=== PATIENT | male | born 1945 | race Caucasian/White ===

== ENCOUNTER 2020-01-09 11:03 | Outpatient (CLI) | payer MEDICARE, SELFPAY ==
--- NOTE | ~2020-01-09 | XR_ITS ---
EXAMINATION: XR chest 2V DATE: 01/09/2020 11:23 INDICATION: Cough and asthma TECHNIQUE: Frontal and lateral views of the chest are obtained COMPARISON: 06/04/2017 FINDINGS: The lungs are free of acute opacities. There is no pleural effusion or pneumothorax. The ca rdiomediastinal silhouette is normal. There is moderate thoracic spondylosis. There are changes of bi lateral total shoulder arthroplasty. IMPRESSION: 1. No acute cardiopulmonary abnormality. Reviewed, dictated and finalized at location A.
== END 2020-01-09 11:04 | disposition home or self-care (01) ==
LOC: ANHIMG 11:09
PROVIDERS: PCP Internal Medicine; Visit Provider Internal Medicine
DX: R05 Cough (principal)
CPT/HCPCS: 71046

== ENCOUNTER → 2020-10-03 09:05 | Outpatient (CLI) | payer MEDICARE, SELFPAY ==
[2020-10-03 21:06] LABS: SARS-CoV-2 RNA PCR Negative
== END ==
PROVIDERS: PCP Physician Assistant; Visit Provider Physician Assistant
DX: R68.89 Other general symptoms and signs (principal); Z20.822 Contact with and (suspected) exposure to COVID-19
CPT/HCPCS: C9803; U0003; U0005

== ENCOUNTER 2020-10-27 21:13 | Emergency (ER) | payer MEDICARE, SELFPAY ==
--- NOTE | ~2020-10-27 | XR_ITS ---
EXAMINATION: XR chest 1V DATE: 10/27/2020 21:56 INDICATION: Dizziness. Nausea and vomiting. TECHNIQUE: A single frontal view of the chest was obtained. COMPARISON: Chest 2 views 01/09/2020 FINDINGS: There is mild atelectasis at left lung base. No pleural effusion or pneumothorax. The heart size is normal. There are bilateral shoulder arthroplasties. IMPRESSION: 1. Mild atelectasis at left lung base. Reviewed, dictated and finalized at location A. BILITATION PHYSICIAN
--- NOTE | ~2020-10-27 | CT_ITS ---
EXAMINATION: CT brain wo con DATE: 10/27/2020 21:53 INDICATION: Dizziness. TECHNIQUE: Computed tomography (CT) of the head was performed without intravenous contrast. The mA wa s adjusted according to patient size. Iterative reconstruction technique was employed. The dose-lengt h product was 605.33 mGy-cm. COMPARISON: None FINDINGS: There are scattered areas of low attenuation in the cerebral white matter. There is chronic encephalomalacia in anterior left temporal lobe. There is no intracranial hemorrhage, acute infarcti on, or abnormal intracranial mass lesion. The ventricles are normal in size. There are likely changes of ocular lens replacement surgeries. There is near complete opacification of the paranasal sinuses with sclerosis is and thickening of the sinus harman and erosions of septa, consistent with chronic si nusitis. The mastoid air cells are normal. IMPRESSION: 1. 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 2. Moderate nonspecific cerebral white matter disease, which likely represents chronic small vessel i schemic disease. 3. Chronic sinusitis. Reviewed, dictated and finalized at location A. OFFICER IMPRESSION: 1. 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 2. Moderate nonspecific cerebral white matter disease, which likely represents chronic small vessel ischemic disease. 3. Chronic sinusitis.
[2020-10-27 21:16] VITALS: BP 148/87; PULSE 61; RESP 18; TEMP 36.1; O2SAT 95
--- NOTE | 2020-10-27 21:35 | ECG_ITS ---
Measurements Intervals [place] Rate: 59 P: 26 MI: 177 QRS: -30 QRSD: 134 T: 3 QT: 437 QTc: 435 Interpretive Statements SINUS BRADYCARDIA INCOMPLETE RIGHT BUNDLE BRANCH BLOCK BORDERLINE ECG Electronically Signed On 10-28-2020 7:09:13 [employer] by Reyes Beard D.O.
[2020-10-27 21:39] VITALS: BP 130/79; PULSE 55
--- NOTE | 2020-10-27 21:39 | ED.DIZZY ---
HPI - Dizziness General Chief Complaint: Dizziness Stated Complaint: N/V, not feeling well. Time Seen by Provider: 10/27/20 21:21 Source: RN notes reviewed History of Present Illness HPI Narrative: Patient presents emergency department from home for dizziness. Patient states that he began to notice dizziness with a feeling of the room spinning earlier today is worse when he lays down flat states it was associated with nausea and vomiting when he became dizzy states dizziness is better lysing upright in bed he denies any fevers or chills vision changes numbness or tingling in extremities chest pain, shortness of breath or any other symptoms. Patient denies any unilateral numbness or tingling of the extremities or trouble speaking Related Data Home Medications Medication Instructions Recorded Confirmed atorvastatin 10 mg tablet 10 mg PO DAILY 09/12/19 10/04/20 fluticasone propionate 50 2 spray NASAL DAILY 09/12/19 10/04/20 mcg/actuation nasal spray,suspension montelukast 10 mg tablet 10 mg PO DAILY 09/12/19 10/04/20 Allergies Allergy/AdvReac Type Severity Reaction Status Date / Time No Known Allergies Allergy Verified 10/04/20 11:13 Review of Systems Review of Systems: Narrative: Gen.: Denies fevers or chills Eyes: Denies eye pain or visual change ENT: Denies congestion Respiratory: Denies shortness of breath or cough CV: Denies chest pain or palpitations GI: Denies abdominal pain reports nausea vomiting Musculoskeletal: Denies back pain or muscle pain Neuro: Reports dizziness Skin: Denies rash Except as documented, all other systems reviewed and negative [facility] Past Medical History Medical History (Updated 10/28/20 @ 01:55 by Celio Duvall DO) Hyperglycemia Family History Family History Mother Patient's mother is in good health Sibling Cerebrovascular accident, Onset Age: 71 Patient's brother is , Onset Age: 71 Father Patient's father is , Onset Age: 51 Social History Social History Smoking status: Never smoker Second hand tobacco smoke exposure: No Alcohol intake: current Substance use: never Exam Narrative: Exam Narrative: APPEARANCE: No acute distress, nontoxic, resting in bed HEENT: Normocephalic, atraumatic, OMM, TMs clear bilaterally EYES: PERRL, EOMI NECK: Supple, nontender, full range of motion without pain, no meningismus RESPIRATORY: No respiratory distress, clear to auscultation bilaterally with no rhonchi wheezing or rales CARDIOVASCULAR: RRR s murmur ABDOMINAL: Soft, nontender, nondistended MUSCULOSKELETAL: Moves all extremities. No clubbing, cyanosis or edema. NEURO: A and O ?3, following commands, speech normal, cranial nerves II through XII grossly intact,muscle strength 5 out of 5 bilateral upper and lower extremities SKIN:: Warm, dry. Normal Color PSYCHIATRIC: Normal affect/mood Course Course Emergency Course: Patient states dizziness is resolved following Antivert able to get up and ambulate in ED with no difficulty Discussed with patient results of workup and diagnosis. Discussed need for follow-up with primary care, proper use of medication, and reasons to return to the emergency department. Patient understands and agrees to current treatment plan Vital Signs Vital signs: Vital Signs Temperature 96.9 F L 10/27/20 21:16 Pulse Rate 61 10/27/20 21:16 Respiratory Rate 18 10/27/20 21:16 Blood Pressure 148/87 H 10/27/20 21:16 Pulse Oximetry 95 10/27/20 21:16 Temperature 96.9 F L 10/27/20 21:16 Pulse Rate 53 L 10/27/20 21:59 Respiratory Rate 18 10/27/20 21:16 Blood Pressure 146/78 H 10/27/20 21:59 Pulse Oximetry 95 10/27/20 21:16 MDM - Dizziness MDM Narrative Medical decision making narrative: Patient's vertigo is felt to be likely peripheral in origin. There is no diplopia,
[2020-10-27] MEDS: MECLIZINE HCL 25 MG TABLET PO (21:55)
[2020-10-27] MEDS: SODIUM CHLORIDE 0.9% IV 1,000 ML 999 ML IV CONT (21:56)
[2020-10-27 21:59] VITALS: BP 146/78; PULSE 53
[2020-10-27 22:09] LABS: Basophils Absolute Auto 0.1 K/mm3 (0.0-0.1); Basophils Percent Auto 0.5 % (0.2-1.2); Eosinophils Absolute Auto 0.8 K/mm3 (0-0.3); Eosinophils Percent Auto 8.2 % (0-4.4); Hematocrit 44.8 % (42.0-52.0); Hemoglobin 14.9 g/dL (14.0-18.0); Immature Granulocyte Absolute 0.03 K/mm3 (0.00-0.031); Immature Granulocyte Percent A 0.3 % (0-0.5); Immature Platelet Fraction Pct 7.5 % (0.9-11.2); Lymphocytes Absolute Auto 2.14 K/mm3 (0.9-3.2); Lymphocytes Percent Auto 21.6 % (18.3-44.2); Mean Corpuscular HGB Conc 33.3 g/dl (32-36); Mean Corpuscular Hemoglobin 30.7 pg (26-34); Mean Corpuscular Volume 92.4 fl (80-100); Mean Platelet Volume 11.3 fl (7.4-10.4); Monocytes Absolute Auto 0.6 K/mm3 (0.1-0.6); Monocytes Percent Auto 6.3 % (2.6-8.5); Neutrophils Absolute Auto 6.3 K/mm3 (1.3-6.7); Neutrophils Percent Auto 63.1 % (45.5-73.1); Platelet Count Result 121 k/mm3 (150-375); Red Blood Count 4.85 M/mm3 (4.6-6.20); Red Cell Distribution Width 13.5 % (11.5-14.5); White Blood Count 9.9 K/mm3 (4.5-10.0)
[2020-10-27 22:17] LABS: Alanine Aminotransferase 19 U/L (4-50); Albumin Level 4.3 g/dL (3.5-5.1); Alkaline Phosphatase 96 U/L (38-126); Anion Gap 7 mmol/L (8-16); Aspartate Amino Transferase 28 U/L (17-59); Bilirubin,Total 0.6 mg/dL (0.2-1.3); Blood Urea Nitrogen 18 mg/dL (9-20); Calcium 9.4 mg/dL (8.4-10.2); Carbon Dioxide 26 mmol/L (22-30); Chloride 106 mmol/L (98-107); Estimated CRCL calculation 82 ml/min; Estimated Glomerular Filt Rate > 60; Glucose 124 mg/dL (75-110); Potassium 3.9 mmol/L (3.4-5.0); Sodium 139 mmol/L (137-145)
[2020-10-27 22:22] LABS: Prothrombin Time 13.3 Seconds (11.1-14.7)
[2020-10-27 22:23] LABS: Partial Thromboplastin Time 31.6 SECONDS (22.3-36.8)
[2020-10-27 22:28] LABS: Troponin I < 0.012 ng/mL (0.000-0.034)
--- NOTE | 2020-10-27 23:37 | PC.NURSE ---
pt able to ambulate in short with no difficulty. pt has uneven gait that pt reports as normal for him.
[2020-10-28 01:44] LABS: Add Urine Microscopic? YES; Appearance Urine Clear (Clear); Bilirubin Urine Negative (Negative); Blood Urine Negative (Negative); Color Urine Yellow (Yellow); Glucose Urine UA Negative (Negative); Ketones Urine Trace mg/dL (Negative); Leukocyte Esterase Ur Negative LEU/UL (Negative); Mucus Urine Heavy /lpf; Nitrate Urine Negative (Negative); Protein Urine Negative (Negative); RBC Urine 0-2 /hpf (0-2); Specific Grav Ur 1.021 (1.001-1.035); Squamous Epithelial Cell Urine Rare /hpf (Few); Urobilinogen Urine Negative mg/dL (<2.0); WBC Urine 0-3 /hpf
[2020-10-28 02:35] VITALS: BP 125/91; PULSE 63; RESP 16; O2SAT 99
== END 2020-10-28 02:36 | disposition home or self-care (01) ==
PROVIDERS: Emergency Provider Emergency Medicine; PCP Internal Medicine
DX: R42 Dizziness and giddiness (principal); R11.2 Nausea with vomiting, unspecified; I45.10 Unspecified right bundle-branch block; R00.1 Bradycardia, unspecified; J32.9 Chronic sinusitis, unspecified; R90.82 White matter disease, unspecified; G93.89 Other specified disorders of brain
CPT/HCPCS: 36415; 70450; 71045; 80053; 81001; 84484; 85025; 85055; 85610; 85730; 93005; 96360; 99284; A9270; J7030

== ENCOUNTER 2020-10-29 16:33 | Outpatient (CLI) | payer MEDICARE, SELFPAY | END 2020-10-29 16:34 | disposition home or self-care (01) | LOC: ANHCOVIDVC 16:33 | PROVIDERS: PCP Internal Medicine | DX: Z23 Encounter for immunization (principal) | CPT/HCPCS: 0001A; 91300 ==

== ENCOUNTER 2020-11-19 16:27 | Outpatient (CLI) | payer MEDICARE, SELFPAY | END 2020-11-19 16:28 | disposition home or self-care (01) | LOC: ANHCOVIDVC 16:27 | PROVIDERS: PCP Internal Medicine | DX: Z23 Encounter for immunization (principal) | CPT/HCPCS: 0002A; 91300 ==

== ENCOUNTER 2020-12-11 11:57 | Outpatient (CLI) | payer MEDICARE, SELFPAY ==
--- NOTE | 2020-12-11 12:33 | ECG_ITS ---
Measurements Intervals [place] Rate: 67 P: 27 MD: 184 QRS: -44 QRSD: 137 T: 1 QT: 402 QTc: 425 Interpretive Statements SINUS RHYTHM LEFT AXIS DEVIATION RIGHT BUNDLE BRANCH BLOCK BASELINE ARTIFACT- II, III, AVF ABNORMAL ECG Electronically Signed On 12-11-2020 12:46:59 CDT by Reyes Beard D.O.
== END 2020-12-11 11:58 | disposition home or self-care (01) ==
PROVIDERS: PCP Internal Medicine; Visit Provider Physician Assistant
DX: I45.10 Unspecified right bundle-branch block (principal); I49.9 Cardiac arrhythmia, unspecified
CPT/HCPCS: 93005

== ENCOUNTER 2021-04-20 13:46 | Emergency (ER) | payer MEDICARE, SELFPAY ==
--- NOTE | ~2021-04-20 | XR_ITS ---
EXAMINATION: XR chest 2V DATE: 04/20/2021 14:27 INDICATION: Shortness of breath. TECHNIQUE: Frontal and lateral views of the chest were obtained. COMPARISON: Chest single view 10/27/2020, chest 2 views 01/09/2020 FINDINGS: A calcified left lung nodule is consistent with old granulomatous disease. There is mild at electasis in left lower lung zone. No pleural effusion or pneumothorax. The heart size is normal. The re is a moderate-sized hiatal hernia. There are bilateral shoulder arthroplasties. There is a mild ch ronic compression fracture in midthoracic spine. IMPRESSION: 1. Mild atelectasis in left lower lung zone. 2. Moderate-sized hiatal hernia. Reviewed, dictated and finalized at location A.
--- NOTE | 2021-04-20 13:51 | ED.SKABFB ---
HPI - Skin/Abscess/Foreign Bdy General Chief complaint: Skin/Abscess/Foreign Body Stated complaint: bites Time Seen by Provider: 04/20/21 13:51 Source: patient and RN notes reviewed History of Present Illness HPI narrative: Patient is a 75-year-old male who presents the urgent care with complaints of possible bug bites to the left wrist. Patient appeared very confused upon arrival. States that he was bit by something doing yard work the last couple days. Patient was oriented to person and knew that he was being seen at the urgent care however, he was on certain of location. Patient states he has not done anything for the bites on the wrist. States that he noticed them a couple weeks ago. Patient is obviously confused on timeline. Denies of any recent shortness of breath however appears short of breath. No other acute complaints. Patient appears very fatigued. Patient verbalizes his understanding of the plan of care however concepts do not appear to be understood. Some parts of this dictation were generated by voice recognition software and may contain typographical and/or grammatical inaccuracies. Related Data Home Medications Medication Instructions Recorded Confirmed atorvastatin 10 mg tablet 10 mg PO DAILY 09/12/19 12/13/20 fluticasone propionate 50 2 spray NASAL DAILY 09/12/19 12/13/20 mcg/actuation nasal spray,suspension montelukast 10 mg tablet 10 mg PO DAILY 09/12/19 12/13/20 Allergies Allergy/AdvReac Type Severity Reaction Status Date / Time No Known Allergies Allergy Verified 12/11/20 11:12 Review of Systems Review of Systems: CONSTITUTIONAL: Denies fever, chills, or sweats. EYES: Denies visual changes, redness, or discharge. ENT: Denies rhinorrhea, congestion, sore throat, or otalgia. CARDIOVASCULAR: Denies chest pain, palpitations, or edema. RESPIRATORY: Denies cough or dyspnea. GASTROINTESTINAL: Denies abdominal pain, nausea, vomiting, or diarrhea. GENITOURINARY: Denies dysuria or hematuria. SKIN: Reports of 2 bug bites to the left wrist MUSCULOSKELETAL: Denies back pain, joint pain, or myalgia. NEUROLOGIC: Denies headache, numbness, or weakness. Denies increased confusion but states multiple times that he is very fatigued All other systems reviewed are negative, except as documented in HPI. [facility] Past Medical History Medical History Hyperglycemia Family History Family History Mother Patient's mother is in good health Sibling Cerebrovascular accident, Onset Age: 71 Patient's brother is , Onset Age: 71 Father Patient's father is , Onset Age: 51 Social History Social History Smoking status: Never smoker Second hand tobacco smoke exposure: No Alcohol intake: current Substance use: never Comments At the time of my signature, I reviewed and agree with the nursing past medical, surgical, social, and family history. There is no relevant family history pertinent to the patient complaint. Exam Narrative: GENERAL: This is a well-nourished, well-developed patient, appears very fatigued HEAD: normocephalic, atraumatic. EYES: PERRL. Sclera clear/white. Vision is grossly intact. EARS: External ears normal NOSE: External nose normal with no obvious nasal discharge, nares without redness, no rhinorrhea. THROAT: Mucous membranes moist NECK: Neck supple CARDIOVASCULAR: Regular rate and rhythm without murmurs, gallops, or rubs. RESPIRATORY: Diminished throughout with inspiratory and expiratory wheezes to the left upper SKIN: warm, intact with no suspicious lesions or rash, good texture and turgor. NEURO: awake, alert, and oriented to person. Increased confusion according to spouse. Bouts of slurred speech EXTREMITIES: No clubbing, cyanosis, or edema. Course Vital Signs Vital s
--- NOTE | 2021-04-20 14:10 | PC.NURSE ---
Patient is very confused. Attempting to reach family to find out patients baseline condition. Contacted and she will be up to get patient. spoke with provider.
--- NOTE | 2021-04-20 14:13 | PC.NURSE ---
Contacted at [phone]
[2021-04-20 14:15] VITALS: BP 130/72; PULSE 91; RESP 16; TEMP 36.9; O2SAT 93
== END 2021-04-20 14:49 | disposition home or self-care (01) ==
PROVIDERS: Emergency Provider Nurse Practitioner Family; PCP Internal Medicine
DX: L57.0 Actinic keratosis (principal); R53.83 Other fatigue; G30.9 Alzheimer's disease, unspecified; F02.80 Dementia in other diseases classified elsewhere, unspecified severity, without behavioral disturbance, psychotic disturbance, mood disturbance, and anxiety
CPT/HCPCS: 71046; 81003; 99213; G0463

== ENCOUNTER → 2021-04-24 02:59 | Outpatient (CLI) | payer MEDICARE, SELFPAY ==
[2021-04-24 20:00] LABS: SARS-CoV-2 RNA PCR Negative
== END ==
PROVIDERS: PCP Internal Medicine; Visit Provider Internal Medicine
DX: R09.89 Other specified symptoms and signs involving the circulatory and respiratory systems (principal); Z20.822 Contact with and (suspected) exposure to COVID-19
CPT/HCPCS: C9803; U0003; U0005

== ENCOUNTER 2021-10-06 11:07 | Emergency (ER) | payer MEDICARE, SELFPAY ==
[2021-10-06 11:12] VITALS: BP 128/76; PULSE 73; RESP 20; TEMP 36.7; O2SAT 100
--- NOTE | 2021-10-06 11:13 | ED.URI ---
HPI - URI/Sore Throat General Stated Complaint: Sore throat Time Seen by Provider: 10/06/21 11:13 Source: patient and RN notes reviewed History of Present Illness HPI Narrative: Patient is 76-year-old male who presents the urgent care with complaints of sore throat. Spouse answers most questions due to history of dementia. states that he has been complaining for the last 2 days more so after he shoveled snow. Denies of any recent fevers, nausea or vomiting. States that he has had a slight cough and has had increase of mucus production. Patient has been COVID vaccinated and denies of any recent exposures. Spouse states that no one else in the home has been ill. Patient has taken aspirin for his sore throat. No other acute complaints. No acute distress noted. Patient spouse aware of the plan of care. Some parts of this dictation were generated by voice recognition software and may contain typographical and/or grammatical inaccuracies. Related Data Home Medications Medication Instructions Recorded Confirmed atorvastatin 10 mg tablet 10 mg PO DAILY 09/12/19 06/09/21 montelukast 10 mg tablet 10 mg PO DAILY 09/12/19 06/09/21 Allergies Allergy/AdvReac Type Severity Reaction Status Date / Time No Known Allergies Allergy Verified 10/06/21 11:19 Review of Systems Review of Systems: CONSTITUTIONAL: Denies fever, chills, or sweats. EYES: Denies visual changes, redness, or discharge. ENT: Reports rhinorrhea, postnasal drainage and sore throat CARDIOVASCULAR: Denies chest pain, palpitations, or edema. RESPIRATORY: Reports a mild cough without dyspnea GASTROINTESTINAL: Denies abdominal pain, nausea, vomiting, or diarrhea. GENITOURINARY: Denies dysuria or hematuria. SKIN: Denies rash or itching. MUSCULOSKELETAL: Denies back pain, joint pain, or myalgia. NEUROLOGIC: Denies headache, numbness, or weakness. All other systems reviewed are negative, except as documented in HPI. [facility] Past Medical History Medical History Hyperglycemia Family History Family History Mother Patient's mother is in good health Sibling Cerebrovascular accident, Onset Age: 71 Patient's brother is , Onset Age: 71 Father Patient's father is , Onset Age: 51 Social History Social History Smoking status: Never smoker Second hand tobacco smoke exposure: No Alcohol intake: current Substance use: never Comments At the time of my signature, I reviewed and agree with the nursing past medical, surgical, social, and family history. There is no relevant family history pertinent to the patient complaint. Exam Narrative: GENERAL: This is a well-nourished, well-developed patient, in no apparent distress. HEAD: normocephalic, atraumatic. EYES: PERRL. Sclera clear/white. Vision is grossly intact. EARS: External ears normal, auditory canals clear and without drainage, TMs normal without perforation. Hearing grossly intact. NOSE: External nose normal with no obvious nasal discharge, nares without redness, clear rhinorrhea. THROAT: Mucous membranes moist. Mild erythema noted posterior pharynx with moderate postnasal drainage NECK: Neck supple CARDIOVASCULAR: Regular rate and rhythm without murmurs, gallops, or rubs. RESPIRATORY: Slight expiratory wheezes to bilateral upper lobes. SKIN: warm, intact with no suspicious lesions or rash, good texture and turgor. NEURO: awake, alert, and oriented to person, place and time. There were no obvious focal neurologic abnormalities. EXTREMITIES: No clubbing, cyanosis, or edema. Course Course Level of Care: Express Care Visit Vital Signs Vital signs: Vital Signs Temperature 98.0 F 10/06/21 11:12 Pulse Rate 73 10/06/21 11:12 Respiratory Rate 20 10/06/21 11:12 Blood Pressure 128/76
== END 2021-10-06 11:43 | disposition home or self-care (01) ==
PROVIDERS: Emergency Provider Nurse Practitioner Family; PCP Internal Medicine
DX: J40 Bronchitis, not specified as acute or chronic (principal); J02.9 Acute pharyngitis, unspecified; F03.90 Unspecified dementia, unspecified severity, without behavioral disturbance, psychotic disturbance, mood disturbance, and anxiety
CPT/HCPCS: 87081; 87880; 99213; G0463

== ENCOUNTER 2021-12-23 13:28 | Emergency (ER) | payer MEDICARE, SELFPAY ==
--- NOTE | ~2021-12-23 | CT_ITS ---
EXAMINATION: CT abdomen pelvis w con INDICATION: Abdominal pain TECHNIQUE: Computed tomographic images of the abdomen and pelvis were obtained after the administrati on of 100 cc of Omnipaque 350 intravenous contrast. The dose-length product (DLP) was 491.65 mGy-cm. Automated exposure control and iterative reconstruction technique were employed. COMPARISON: None available FINDINGS: Minimal dependent atelectasis is present in the lung bases. The heart size is normal. There is a moderate-sized sliding hiatal hernia. There is possible circumferential wall thickening of the gastric antrum. There is a 3 mm cyst in the left hepatic lobe. The spleen, pancreas, gallbladder, and adrenal glands are normal. The right kidney is unremarkable. There is a 9 mm cyst of the left kidney . There is calcified atherosclerosis of the aorta and many of the other arteries. No pathologically e nlarged abdominal or pelvic lymph nodes are identified. There is no free intraperitoneal gas or evide nce of bowel obstruction. The appendix is normal. There is severe lumbar spondylosis. IMPRESSION: 1. Questionable wall thickening of the gastric antrum which could reflect gastritis. 2. Moderate-sized sliding hiatal hernia. Reviewed, dictated and finalized at location F. IMPRESSION: 1. Questionable wall thickening of the gastric antrum which could reflect gastr itis. 2. Moderate-sized sliding hiatal hernia.
[2021-12-23 13:46] VITALS: BP 139/83; PULSE 69; RESP 18; TEMP 35.9; O2SAT 94
[2021-12-23 14:05] LABS: Basophils Absolute Auto 0.1 K/mm3 (0.0-0.1); Basophils Percent Auto 0.8 % (0.2-1.2); Eosinophils Absolute Auto 0.7 K/mm3 (0-0.3); Hematocrit 48.6 % (42.0-52.0); Hemoglobin 15.9 g/dL (14.0-18.0); Immature Granulocyte Absolute 0.03 K/mm3 (0.00-0.031); Immature Granulocyte Percent A 0.4 % (0-0.5); Immature Platelet Fraction Pct 6.8 % (0.9-11.2); Lymphocytes Absolute Auto 1.39 K/mm3 (0.9-3.2); Lymphocytes Percent Auto 18.8 % (18.3-44.2); Mean Corpuscular HGB Conc 32.7 g/dl (32-36); Mean Corpuscular Hemoglobin 31.1 pg (26-34); Mean Corpuscular Volume 94.9 fl (80-100); Monocytes Absolute Auto 0.5 K/mm3 (0.1-0.6); Monocytes Percent Auto 6.1 % (2.6-8.5); Neutrophils Absolute Auto 4.7 K/mm3 (1.3-6.7); Neutrophils Percent Auto 63.9 % (45.5-73.1); Platelet Count Result 122 k/mm3 (150-375); Red Blood Count 5.12 M/mm3 (4.6-6.20); Red Cell Distribution Width 13.3 % (11.5-14.5); White Blood Count 7.4 K/mm3 (4.5-10.0)
[2021-12-23 14:12] LABS: Alanine Aminotransferase 19 U/L (4-50); Albumin Level 4.5 g/dL (3.5-5.1); Alkaline Phosphatase 95 U/L (38-126); Anion Gap 7 mmol/L (8-16); Aspartate Amino Transferase 27 U/L (17-59); Bilirubin,Total 0.8 mg/dL (0.2-1.3); Blood Urea Nitrogen 16 mg/dL (9-20); Calcium 9.2 mg/dL (8.4-10.2); Carbon Dioxide 25 mmol/L (22-30); Chloride 106 mmol/L (98-107); Estimated CRCL calculation 78 ml/min; Estimated Glomerular Filt Rate > 60; Glucose 117 mg/dL (65-110); Lipase 55 U/L (23-300); Potassium 4.5 mmol/L (3.4-5.0); Sodium 138 mmol/L (137-145)
[2021-12-23 17:09] LABS: Add Urine Microscopic? YES; Appearance Urine Clear (Clear); Bilirubin Urine Negative (Negative); Blood Urine Negative (Negative); Color Urine Yellow (Yellow); Glucose Urine UA Negative (Negative); Ketones Urine 1+ mg/dL (Negative); Leukocyte Esterase Ur Negative LEU/UL (Negative); Mucus Urine Heavy /lpf; Nitrate Urine Negative (Negative); Protein Urine Negative (Negative); RBC Urine 0-2 /hpf (0-2); Specific Grav Ur 1.026 (1.001-1.035); Squamous Epithelial Cell Urine Rare /hpf (Few); WBC Urine 0-3 /hpf
--- NOTE | 2021-12-23 17:31 | ED.NAVMDI ---
HPI - Nausea/Vomiting/Diarrhea General Chief complaint: Nausea/Vomiting/Diarrhea Stated complaint: stomach pain, vomiting Time Seen by Provider: 12/23/21 17:00 Source: patient and family Mode of arrival: ambulatory Limitations: dementia History of Present Illness HPI Narrative: This is a 76-year-old male that presents to the emergency department for nausea and vomiting. Associated with mid abdominal discomfort. Ongoing since early this morning. Denies fever, diarrhea, hematochezia, or dysuria. Related Data Home Medications Medication Instructions Recorded Confirmed rivastigmine 4.6 mg TRANSDERMAL DAILY 12/12/21 12/12/21 sertraline 25 mg tablet 25 mg PO DAILY 12/12/21 12/12/21 donepezil 10 mg DAILY 12/23/21 fluticasone propion-salmeterol INHALATION 12/23/21 [Wixela Arturo] Allergies Allergy/AdvReac Type Severity Reaction Status Date / Time No Known Allergies Allergy Verified 12/23/21 16:47 Review of Systems Review of Systems: CONSTITUTIONAL: Denies fever GASTROINTESTINAL: Reports abdominal pain, nausea, vomiting. Denies diarrhea. GENITOURINARY: Denies dysuria All systems reviewed & are unremarkable except as noted in HPI and below PMFSH Past Medical History Medical History (Updated 12/23/21 @ 19:24 by Nereyda Rosa PA-C) Dementia Hyperglycemia Unspecified asthma, uncomplicated Family History Family History Mother Patient's mother is in good health Sibling Cerebrovascular accident, Onset Age: 71 Patient's brother is , Onset Age: 71 Father Patient's father is , Onset Age: 51 Social History Social History Second hand tobacco smoke exposure: No Alcohol intake: current Substance use: never Exam Narrative: GENERAL: Well-appearing, well-nourished, and in no acute distress. HEAD: Normocephalic, atraumatic. EYES: EOMI. CHEST: Clear to auscultation. No respiratory distress. No wheezes rales or rhonchi HEART: Regular rate and rhythm. No murmur heard. Normal peripheral pulses. ABDOMEN: Soft, nontender, nondistended, normal active bowel sounds. No CVA tenderness EXTREMITIES: Normal range of motion. No edema. SKIN: Warm, dry, no rash. NEURO: No focal deficits. Alert and oriented x3. PSYCH: Normal mood and affect Course Vital Signs Vital signs: Vital Signs Temperature 96.7 F L 12/23/21 13:46 Pulse Rate 69 12/23/21 13:46 Respiratory Rate 18 12/23/21 13:46 Blood Pressure 139/83 12/23/21 13:46 Pulse Oximetry 94 12/23/21 13:46 Temperature 96.7 F L 12/23/21 13:46 Pulse Rate 85 12/23/21 19:01 Respiratory Rate 16 12/23/21 19:01 Blood Pressure 125/77 12/23/21 19:01 Pulse Oximetry 96 12/23/21 19:01 MDM - Nausea/Vomiting/Diarrhea MDM Narrative Medical decision making narrative: Patient presents to the emergency department for abdominal pain, nausea and vomiting. Ongoing since this morning. Patient is afebrile and nontoxic-appearing. His vitals are stable. CBC and metabolic panel without concerning findings. Lipase is normal. UA without evidence of infection. CT scan of the abdomen and pelvis shows gastritis and a moderate size sliding hiatal hernia. Patient and family updated on case findings. Given dose of Protonix, Zofran and hydrated with relief. Able to tolerate p.o. challenge. Will be started on PPI and instructed to follow-up with gastroenterology. He was given warnings to return to the ER Lab Data Attestation: I reviewed the patient's lab results. Result diagrams: 12/23/21 13:57 12/23/21 13:57 Labs: Lab Results 12/23/21 12/23/21 12/23/21 Range/Units 13:57 13:57 16:57 WBC 7.4 (4.5-10.0) K/mm3 RBC 5.12 (4.6-6.20) M/mm3 Hgb 15.9 (14.0-18.0) g/dL Hct 48.6 (42.0-52.0) % MCV 94.9 (80-100) fl MCH 31.1 (26-34) pg MCHC 32.7 (32-36) g/d
[2021-12-23] MEDS: PANTOPRAZOLE SODIUM IV 40 MG VIAL IV PUSH (18:39)
[2021-12-23] MEDS: ONDANSETRON INJ 4 MG/2 ML VIAL IV PUSH (18:39)
[2021-12-23] MEDS: SODIUM CHLORIDE 0.9% IV 500 ML 999 ML IV CONT (18:39)
--- NOTE | 2021-12-23 19:00 | PC.NURSE ---
Assumed care of pt. at this time. Report from SHARI Mendoza
[2021-12-23 19:01] VITALS: BP 125/77; PULSE 85; RESP 16; O2SAT 96
[2021-12-23 19:10] VITALS: BP 139/74; PULSE 61; RESP 12; O2SAT 98
[2021-12-23 19:40] VITALS: BP 126/79; PULSE 61; RESP 14; O2SAT 100
== END 2021-12-23 19:40 | disposition home or self-care (01) ==
PROVIDERS: Emergency Provider Emergency Medicine; PCP Internal Medicine
DX: K29.70 Gastritis, unspecified, without bleeding (principal); F03.90 Unspecified dementia, unspecified severity, without behavioral disturbance, psychotic disturbance, mood disturbance, and anxiety; Z79.899 Other long term (current) drug therapy
CPT/HCPCS: 36415; 74177; 80053; 81001; 83690; 85025; 85055; 96365; 96375; 99284; C9113; J0131; J2405; J7040; Q9967

== ENCOUNTER 2022-04-08 15:03 | Emergency (ER) | payer MEDICARE, SELFPAY ==
--- NOTE | ~2022-04-08 | CT_ITS ---
EXAMINATION: CT brain wo con DATE: 04/08/2022 16:07 INDICATION: Increased confusion. History of dementia. TECHNIQUE: Computed tomography (CT) of the head was performed without intravenous contrast. The mA wa s adjusted according to patient size. Iterative reconstruction technique was employed. Exam dose: 68 1.00 mGy-cm total exam DLP. COMPARISON: 10/27/2020 CT brain FINDINGS: There is mild central and cortical cerebral moderately prominent cerebellar atrophy. No intracranial mass lesion or hemorrhage or recent cerebrovascular accident is detected. Chronic ant erior inferior left temporal encephalomalacia. Minimal left basal ganglia calcification. No midline shift or mass effect. Bilateral carotid siphon internal carotid artery calcifications. Nonspecific diminished attenuation c erebral white matter, likely due to chronic small vessel ischemic changes. No subdural or epidural hematoma. No fracture or bone destruction of the cranial vault. Complete opacification of the right frontal, right ethmoid and right sphenoid sinuses, prominent patc hy opacification of left ethmoid sinus is and mild mucoperiosteal thickening of the left frontal and sphenoid sinuses. Prominent mucosal periosteal thickening of both maxillary sinuses. Bilateral nasal antral windows. Minimal right mastoid effusion. The mastoid air cells are otherwise unremarkable bilaterally. No fracture or bone destruction of the cranial vault. IMPRESSION: Prominent cerebral and cerebellar atrophy Chronic anteroinferior left temporal lobe encephalomalacia. Cerebral atherosclerosis and chronic small vessel ischemic changes of cerebral white matter No acute intracranial finding or skull fracture Extensive paranasal sinus disease Reviewed, dictated and finalized at [facility]. Reviewed, dictated and finalized at location B.
--- NOTE | ~2022-04-08 | XR_ITS ---
EXAMINATION: XR chest 1V portable Exam Date/Time: 04/08/2022 15:20 CDT HISTORY: dyspnea;hx of asthma, dementia Comparison: 04/20/2021. RESULT: Lines, tubes, and devices: Bilateral shoulder arthroplasties. Lungs and pleura: Senescent and possibly emphysematous change, otherwise clear. Cardiomediastinal silhouette: Stable. Other: No acute osseous or upper abdominal finding. IMPRESSION: No acute cardiopulmonary process. Reviewed, dictated and finalized at location K.
[2022-04-08 15:00] VITALS: BP 116/76; PULSE 86; RESP 20; TEMP 36.2; O2SAT 97
--- NOTE | 2022-04-08 15:05 | ECG_ITS ---
Measurements Intervals [place] Rate: 79 P: 85 [place]: 169 QRS: -59 QRSD: 134 T: 28 QT: 391 QTc: 450 Interpretive Statements SINUS RHYTHM RIGHT BUNDLE BRANCH BLOCK [120+ ms QRS DURATION, UPRIGHT V1, 40+ ms S IN I/aVL/V4/V5/V6] LEFT ANTERIOR FASCICULAR BLOCK [QRS AXIS <= -45, QR IN I, RS IN II] COMPARED TO ECG 12/11/2020 12:41:56 LEFT ANTERIOR FASCICULAR BLOCK NOW PRESENT Electronically Signed On 04-08-2022 18:38:40 CDT by Lexi Grimm M.D.
--- NOTE | 2022-04-08 15:14 | ED.SOB ---
HPI - SOB/Dyspnea General Chief Complaint: Shortness of Breath/Dyspnea Stated Complaint: sob/dyspnea hx asthma Time Seen by Provider: 04/08/22 15:06 History of Present Illness HPI Narrative: pt went outside working in yard sob and neb, steroid by ems and talking better, very calm and joking and says neighbor helped him b/c not home and says the neighbors dog bit him left hand however jumped up on him per family who wasn't there and not sure if scratch or bite no bleeding very superficeal 2 dacosta dorsal hand no deformity. needs tdap and not sure of dog's shots. pt also denies cp/f/uri trauma but said was confused with sob outside. no leg swelling or pain, family here and says h/o alzheimer's and does this often and this is very similar to past episodes not new with confusion, sob and leaving house when left alone Related Data Home Medications Medication Instructions Recorded Confirmed rivastigmine 4.6 mg/24 hour 4.6 mg transdermal DAILY 12/12/21 12/12/21 transdermal patch sertraline 25 mg tablet 25 mg PO DAILY 12/12/21 12/12/21 fluticasone 500 mcg-salmeterol 50 inhalation 12/23/21 mcg/dose blistr powdr for inhalation (Wixela Inhub) Allergies Allergy/AdvReac Type Severity Reaction Status Date / Time No Known Allergies Allergy Verified 12/25/21 09:49 Review of Systems Constitutional: Comments: CONSTITUTIONAL: Denies fever, chills, or sweats. EYES: Denies visual changes, redness, or discharge. ENT: Denies rhinorrhea, congestion, sore throat, or otalgia. CARDIOVASCULAR: Denies chest pain, palpitations, or edema. 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 GASTROINTESTINAL: Denies abdominal pain, nausea, vomiting, or diarrhea. GENITOURINARY: Denies dysuria or hematuria. SKIN: Denies rash or itching. MUSCULOSKELETAL: Denies back pain, joint pain, or myalgia. has bite vs dog scratch left dorsal hand NEUROLOGIC: Denies headache, numbness, or weakness. no confusion now had with sob PSYCHIATRIC: Denies anxiety or depression. [facility] Past Medical History Medical History (Updated 04/08/22 @ 16:48 by Sheila Holman MD) Dementia Hyperglycemia Unspecified asthma, uncomplicated Family History Family History Mother Patient's mother is in good health Sibling Cerebrovascular accident, Onset Age: 71 Patient's brother is , Onset Age: 71 Father Patient's father is , Onset Age: 51 Social History Social History Second hand tobacco smoke exposure: No Alcohol intake: current Substance use: never Exam Const: Other: APPEARANCE: Well appearing, no pain in distress, well-nourished. Head normocephalic atraumtaic. EYES: PERRLA/EOMI, conjunctivae very clear. NOSE: Normal no drainage EARS:TMS clear Janki Goodman, with good light reflex. THROAT: Pharynx clear, no exudate. NECK: Supple. No adenopathy, no masses. RESPIRATORY: Airway patent, repsirations nonlabored. Clear to auscultation bilaterally, no rales, rhonchi, wheezing. CARDIOVASCULAR: Regular rate and rhythm without murmurs rubs or gallops. ABDOMINAL: Soft, nontender, nondistended, no hepatosplenomegally MUSCULOSKELETAl: Moves all extremities. Strenght/ROM intact, No edema, No calf tenderness. NEURO: Alert. Cranial nerves II through XII intact. Good gait. Good coordination NIH 0 has dementia at baseline per family no pronotar drift or facial droop or focal deficits new SKIN:: Warm, dry. Normal Color 2 4mm dacosta left dorsal hand ? bite vs scratch hard to say will cover like a bite PSYCHIATRIC: Normal affect/mood, normal interaction with parents. Course Vital Signs Vital signs: Vital Signs Temperature 36.2 C L 04/08/22 15:00 Pulse Rate 86 04/08/22 15:00 Respiratory Rate 20 04/08/22 15:00 Blood Pressure 116/76 04/08/22 15:00 Pulse Oximetry 97 04/08/22 15:00 Temperature 36.2 C L
[2022-04-08 15:43] VITALS: PULSE 79; RESP 19
[2022-04-08] MEDS: ALBUTEROL SULFATE NEB 2.5 MG/3 ML INH INHALATION (15:43)
[2022-04-08 15:52] VITALS: PULSE 75; RESP 22
[2022-04-08 16:02] LABS: Basophils Absolute Auto 0.1 K/mm3 (0.0-0.1); Basophils Percent Auto 1.1 % (0.2-1.2); Eosinophils Absolute Auto 0.7 K/mm3 (0-0.3); Eosinophils Percent Auto 10.9 % (0-4.4); Hematocrit 43.9 % (42.0-52.0); Hemoglobin 14.3 g/dL (14.0-18.0); Immature Granulocyte Absolute 0.02 K/mm3 (0.00-0.031); Immature Granulocyte Percent A 0.3 % (0-0.5); Immature Platelet Fraction Pct 8.4 % (0.9-11.2); Lymphocytes Absolute Auto 1.55 K/mm3 (0.9-3.2); Lymphocytes Percent Auto 24.5 % (18.3-44.2); Mean Corpuscular HGB Conc 32.6 g/dl (32-36); Mean Corpuscular Hemoglobin 30.6 pg (26-34); Mean Corpuscular Volume 93.8 fl (80-100); Mean Platelet Volume 11.5 fl (7.4-10.4); Monocytes Absolute Auto 0.5 K/mm3 (0.1-0.6); Monocytes Percent Auto 7.8 % (2.6-8.5); Neutrophils Absolute Auto 3.5 K/mm3 (1.3-6.7); Neutrophils Percent Auto 55.4 % (45.5-73.1); Platelet Count Result 132 k/mm3 (150-375); Red Blood Count 4.68 M/mm3 (4.6-6.20); White Blood Count 6.3 K/mm3 (4.5-10.0)
[2022-04-08 16:11] LABS: Alanine Aminotransferase 17 U/L (6-50); Albumin Level 3.7 g/dL (3.5-5.1); Alkaline Phosphatase 72 U/L (38-126); Anion Gap 8 mmol/L (8-16); Aspartate Amino Transferase 20 U/L (17-59); Bilirubin,Total 0.6 mg/dL (0.2-1.3); Blood Urea Nitrogen 20 mg/dL (9-20); Calcium 9.2 mg/dL (8.4-10.2); Carbon Dioxide 27 mmol/L (22-30); Chloride 103 mmol/L (98-107); Estimated CRCL calculation 68 ml/min; Estimated Glomerular Filt Rate > 60; Glucose 96 mg/dL (65-110); Potassium 3.7 mmol/L (3.4-5.0); Sodium 138 mmol/L (137-145)
[2022-04-08] MEDS: TETANUS,DIPHTHERIA,AC PERTUSSIS ADULT (0.5 ML) BOOSTRIX IM (16:15)
[2022-04-08 16:34] LABS: SARS-CoV-2 RNA PCR Negative
[2022-04-08] MEDS: AMOXICILLIN/CLAVULANATE K 500-125 MG TAB 1 TABLET PO (16:38)
[2022-04-08 17:15] VITALS: BP 125/59; PULSE 74; RESP 20; O2SAT 99
== END 2022-04-08 17:16 | disposition home or self-care (01) ==
PROVIDERS: Emergency Provider Emergency Medicine; PCP Internal Medicine
DX: J32.9 Chronic sinusitis, unspecified (principal); J45.901 Unspecified asthma with (acute) exacerbation; Z20.822 Contact with and (suspected) exposure to COVID-19; S60.572A Other superficial bite of hand of left hand, initial encounter; W54.0XXA Bitten by dog, initial encounter; F03.90 Unspecified dementia, unspecified severity, without behavioral disturbance, psychotic disturbance, mood disturbance, and anxiety; Z23 Encounter for immunization
CPT/HCPCS: 36415; 70450; 71045; 80053; 85025; 85055; 90471; 90715; 93005; 94640; 99283; A9270; C9803; U0003; U0005

== ENCOUNTER 2023-06-30 13:12 | Outpatient (CLI) | payer MEDICARE, SELFPAY ==
--- NOTE | ~2023-06-30 | XR_ITS ---
EXAMINATION: XR chest 2V 06/30/2023 13:51 INDICATION: Cough PROCEDURE: 2 view chest COMPARISON: Comparison to multiple prior studies sequentially, with oldest reviewed study dated 01/08. FINDINGS: The lungs are clear. The cardiomediastinal silhouette is within normal limits. There are no pleural effusions. There is no pneumothorax suspected. The lungs are hyperinflated which is cons istent with, but not diagnostic of chronic obstructive pulmonary disease. There are partially visuali zed bilateral shoulder arthroplasties. IMPRESSION: 1: NO ACUTE CARDIOPULMONARY DISEASE. Reviewed, dictated and finalized at location [facility].
[2023-06-30 14:27] LABS: SARS-CoV-2 RNA PCR Negative (Negative)
== END 2023-06-30 13:13 | disposition home or self-care (01) ==
PROVIDERS: PCP Internal Medicine; Visit Provider Physician Assistant
DX: R68.89 Other general symptoms and signs (principal); R05.9 Cough, unspecified; Z20.822 Contact with and (suspected) exposure to COVID-19
CPT/HCPCS: 71046; 87635

== ENCOUNTER 2023-07-08 15:25 | Emergency (ER) | payer MEDICARE, SELFPAY ==
--- NOTE | ~2023-07-08 | XR_ITS ---
EXAMINATION: XR chest 2V DATE: 07/08/2023 16:06 INDICATION: Chest congestion, cough and fatigue TECHNIQUE: frontal and lateral views of the chest were obtained. COMPARISON: Chest radiograph dated 06/30/[address] dated 12/23/2021 FINDINGS: Bronchial wall thickening and new airspace opacities at the posterior medial left lower lung zone con sistent with pneumonia. Chronic lingular linear discoid atelectasis/scarring at the lateral left lowe r lung zone. Calcified nodules in the left lower lobe consistent with old granulomatous disease. No p ulmonary edema, pleural effusion or pneumothorax. Heart size is normal. Moderate-sized hiatal hernia evident on prior CT is obscured by the adjacent left basilar lung disease. Bilateral total shoulder a rthroplasties. IMPRESSION: 1. New left lower lobar opacities concerning for pneumonia. 2. Moderate-sized hiatal hernia. Reviewed, dictated and finalized at location A. K SHADER
--- NOTE | 2023-07-08 15:38 | ED.URI ---
HPI - URI/Sore Throat General Chief Complaint: Upper Respiratory Infection Stated Complaint: CONGETION/COUGH/CHEST PAIN/NOT EATING/WEAKNESS Time Seen by Provider: 07/08/23 15:38 Source: patient Mode of arrival: ambulatory Limitations: no limitations History of Present Illness HPI Narrative: 77-year-old male with a history of dementia and asthma presented for c/o cough for 4 weeks, and now with fatigue and decreased appetite. has accompanied pt and states he has not eaten in 2 days, and has not wanted to get out of bed. Pt has cough at baseline but reports increase in sputum production. Denies chest pain, heart racing, sob, wheezing, n/v/d/f/c. Patient had normal CXR and negative covid testing 06/30. Patient resides with . Related Data Home Medications Medication Instructions Recorded Confirmed rivastigmine 4.6 mg/24 hour 4.6 mg transdermal DAILY 12/12/21 07/08/23 transdermal patch memantine 5 mg tablet 5 mg PO DAILY 12/16/22 07/08/23 quetiapine 25 mg tablet 25 mg PO BID 12/16/22 07/08/23 Allergies Allergy/AdvReac Type Severity Reaction Status Date / Time No Known Allergies Allergy Verified 07/08/23 15:38 Review of Systems Review of Systems: CONSTITUTIONAL: Reports fatigue Denies body aches, fever, chills, or sweats. EYES: Denies visual changes, redness, or discharge. ENT: Denies rhinorrhea, congestion, sore throat, or otalgia. CARDIOVASCULAR: Denies chest pain, palpitations, or edema. RESPIRATORY: Reports cough, denies sob, wheezing. GASTROINTESTINAL: Denies abdominal pain, nausea, vomiting, or diarrhea. GENITOURINARY: Denies dysuria or hematuria. SKIN: Denies rash, itching, or wounds. MUSCULOSKELETAL: Denies change in joint pain, or myalgia. NEUROLOGIC: Denies headache, numbness, tingling, or weakness. All systems reviewed & are unremarkable except as noted in HPI and below PMFSH Past Medical History Medical History Dementia Hyperglycemia Unspecified asthma, uncomplicated Family History Family History Mother Patient's mother is in good health Sibling Cerebrovascular accident, Onset Age: 71 Patient's brother is , Onset Age: 71 Father Patient's father is , Onset Age: 51 Social History Social History Smoking status: Never smoker Second hand tobacco smoke exposure: No Alcohol intake: current Substance use: never Comments At time of signature, I have reviewed and agree with nursing past medical, surgical, social and family history unless otherwise noted. Please see nursing chart for further information. There is no relevant family history pertinent to the presenting complaint Exam Narrative: GENERAL: mildly ill-appearing, drowsy, in no acute distress. EYES: EOMI. No redness or drainage. Conjunctivae normal. ENT: Mucous membranes pink and moist. No rhinorrhea. TMs normal bilaterally. Throat normal. Uvula midline. NECK: Normal AROM. Supple. CHEST: No respiratory distress. Expiratory Wheezing to bases. Right lateral rib with yellow bruise. HEART: Regular rate and rhythm. ABDOMEN: Soft, nontender, nondistended, normal active bowel sounds. EXTREMITIES: Normal range of motion. No edema. SKIN: Warm, dry, no rash. Capillary refill normal. Normal skin turgor. NEURO: Alert and oriented x2-3. Answers most questions appropriately. Gait weak/steady. PSYCH: Normal affect. Course Course Emergency Course: Patient is aware of diagnosis, understands and agrees to treatment plan. Anticipatory guidance given. Patient agrees to follow-up as directed and is aware of reasons to seek care at the emergency department. Portions of this record may have been created with voice recognition software Level of Care: Express Care Visit Transfer Transfered to: [facility]
[2023-07-08 15:46] VITALS: BP 104/70; PULSE 88; RESP 16; TEMP 36.8; O2SAT 95
== END 2023-07-08 16:30 | disposition short-term general hospital (02) ==
PROVIDERS: Emergency Provider Nurse Practitioner Family; PCP Internal Medicine
DX: R05.9 Cough, unspecified (principal); F03.90 Unspecified dementia, unspecified severity, without behavioral disturbance, psychotic disturbance, mood disturbance, and anxiety; Z79.899 Other long term (current) drug therapy
CPT/HCPCS: 71046; 99213; G0463

== ENCOUNTER 2023-07-08 16:56 | Inpatient (IN) | payer MEDICARE, SELFPAY ==
[2023-07-08 17:01] VITALS: BP 105/61; PULSE 74; RESP 18; TEMP 36.3; O2SAT 97
[2023-07-08 17:28] LABS: Basophils Percent Auto 0.4 % (0.2-1.2); Eosinophils Absolute Auto 0.2 K/mm3 (0-0.3); Eosinophils Percent Auto 1.7 % (0-4.4); Hematocrit 41.7 % (42.0-52.0); Hemoglobin 13.6 g/dL (14.0-18.0); Immature Granulocyte Absolute 0.05 K/mm3 (0.00-0.031); Immature Granulocyte Percent A 0.5 % (0-0.5); Lymphocytes Absolute Auto 0.93 K/mm3 (0.9-3.2); Lymphocytes Percent Auto 9.2 % (18.3-44.2); Mean Corpuscular HGB Conc 32.6 g/dl (32-36); Mean Corpuscular Hemoglobin 30.7 pg (26-34); Mean Corpuscular Volume 94.1 fl (80-100); Mean Platelet Volume 10.5 fl (7.4-10.4); Monocytes Absolute Auto 0.6 K/mm3 (0.1-0.6); Monocytes Percent Auto 6.1 % (2.6-8.5); Neutrophils Absolute Auto 8.3 K/mm3 (1.3-6.7); Neutrophils Percent Auto 82.1 % (45.5-73.1); Platelet Count Result 152 k/mm3 (150-375); Red Blood Count 4.43 M/mm3 (4.6-6.20); Red Cell Distribution Width 13.1 % (11.5-14.5); White Blood Count 10.1 K/mm3 (4.5-10.0)
[2023-07-08 17:38] LABS: Alanine Aminotransferase 19 U/L (6-50); Albumin Level 3.9 g/dL (3.5-5.1); Alkaline Phosphatase 95 U/L (38-126); Anion Gap 11 mmol/L (8-16); Aspartate Amino Transferase 18 U/L (17-59); Blood Urea Nitrogen 13 mg/dL (9-20); Calcium 8.9 mg/dL (8.4-10.2); Carbon Dioxide 25 mmol/L (22-30); Chloride 102 mmol/L (98-107); Estimated CRCL calculation 70 ml/min; Estimated Glomerular Filt Rate > 60; Glucose 104 mg/dL (65-110); Potassium 3.7 mmol/L (3.4-5.0); Sodium 138 mmol/L (137-145)
--- NOTE | 2023-07-08 19:13 | ECG_ITS ---
Measurements Intervals [place] Rate: 69 P: 55 MA: 164 QRS: -61 QRSD: 151 T: 29 QT: 415 QTc: 446 Interpretive Statements SINUS RHYTHM RIGHT BUNDLE BRANCH BLOCK LEFT ANTERIOR FASCICULAR BLOCK BASELINE ARTIFACT- II, AVR ABNORMAL ECG COMPARED TO ECG 04/08/2022 15:19:38 NO SIGNIFICANT CHANGES Electronically Signed On 07-09-2023 6:18:00 PRIVATE BRANCH EXCHANGE REPAIRER by Reyes Beard D.O.
--- NOTE | 2023-07-08 19:14 | ED.GENADULT ---
HPI - General Adult General Chief complaint: Recheck/Abnormal Lab/Rx Stated complaint: sent from [place] for pneumonia on xray Time Seen by Provider: 07/08/23 19:00 History of Present Illness HPI narrative: Patient is a 77-year-old gentleman who presents the emergency department with chief complaint of pneumonia. Patient has history of dementia and reports that several weeks ago she developed a cough the patient was seen in the emergency department at that time had a COVID test and also chest x-ray that was negative the patient reports he is continue to have cough and the family took him today to urgent care after he has been weaker than normal sleeping a lot and not eating and drinking. They have noticed that he had a probable pneumonia on the chest x-ray and the patient was sent to the emergency department. Related Data Home Medications Medication Instructions Recorded Confirmed rivastigmine 4.6 mg/24 hour 4.6 mg transdermal DAILY 12/12/21 07/08/23 transdermal patch memantine 5 mg tablet 5 mg PO DAILY 12/16/22 07/08/23 quetiapine 25 mg tablet 25 mg PO BID 12/16/22 07/08/23 Allergies Allergy/AdvReac Type Severity Reaction Status Date / Time No Known Allergies Allergy Verified 07/08/23 15:38 Review of Systems Review of Systems: A 10 system review of systems was completed on the patient and is negative except for what is stated in the HPI. Nursing and ancillary documentation was reviewed. PMFSH Past Medical History Medical History Dementia Hyperglycemia Unspecified asthma, uncomplicated Family History Family History Mother Patient's mother is in good health Sibling Cerebrovascular accident, Onset Age: 71 Patient's brother is , Onset Age: 71 Father Patient's father is , Onset Age: 51 Social History Social History Smoking status: Never smoker Second hand tobacco smoke exposure: No Alcohol intake: current Substance use: never Exam Narrative: GENERAL: Well-appearing, well-nourished, and in no acute distress. HEAD: Normocephalic, atraumatic. EYES: PERRLA and EOMI. ENT: Nares clear, no rhinorrhea or epistaxis. Mucous membranes moist. NECK: Supple. CHEST: Clear to auscultation. No respiratory distress. HEART: Regular rate and rhythm. No murmur heard. Normal peripheral pulses. ABDOMEN: Soft, nontender, nondistended, normal active bowel sounds. EXTREMITIES: Normal range of motion. No edema. SKIN: Warm, dry, no rash. NEURO: No focal deficits. Alert and pleasantly confused to patient's baseline. PSYCH: Normal mood and affect. Course Vital Signs Vital signs: Vital Signs Temperature 36.3 C L 07/08/23 17:01 Pulse Rate 74 07/08/23 17:01 Respiratory Rate 18 07/08/23 17:01 Blood Pressure 105/61 07/08/23 17:01 Pulse Oximetry 97 07/08/23 17:01 Oxygen Delivery Room Air 07/08/23 17:01 Temperature 36.3 C L 07/08/23 17:01 Pulse Rate 72 07/08/23 21:28 Respiratory Rate 15 07/08/23 21:28 Blood Pressure 122/64 07/08/23 21:28 Pulse Oximetry 98 07/08/23 21:28 Oxygen Delivery Room Air 07/08/23 17:01 Medical Decision Making Vital Signs Vital Signs: Vital Signs Temperature 36.3 C L 07/08/23 17:01 Pulse Rate 74 07/08/23 17:01 Respiratory Rate 18 07/08/23 17:01 Blood Pressure 105/61 07/08/23 17:01 Pulse Oximetry 97 07/08/23 17:01 Oxygen Delivery Room Air 07/08/23 17:01 Temperature 36.3 C L 07/08/23 17:01 Pulse Rate 72 07/08/23 21:28 Respiratory Rate 15 07/08/23 21:28 Blood Pressure 122/64 07/08/23 21:28 Pulse Oximetry 98 07/08/23 21:28 Oxygen Delivery Room Air 07/08/23 17:01 Lab Data 07/08/23 17:18 07/08/23 17:18 Labs: Lab Results 07/08
[2023-07-08] MEDS: SODIUM CHLORIDE 0.9% IV 1,000 ML 500 ML IV CONT (19:37)
[2023-07-08 19:50] LABS: Lactic Acid Reflex 1.1 mmol/L (0.7-2.0)
[2023-07-08] MEDS: AZITHROMYCIN 500 MG/NS 250 ML 500 MG/250 ML BAG 250 MG IVPB (19:55)
[2023-07-08 20:05] LABS: NT Pro B Type Natriuretic Pept 587 pg/mL (19.9-100); Troponin I < 0.012 ng/mL (0.000-0.034)
[2023-07-08 20:07] LABS: Procalcitonin 0.2 ng/mL
[2023-07-08 20:14] LABS: Influenza A QL RT-PCR Negative (Negative); Influenza B QL RT-PCR Negative (Negative); SARS-CoV-2 RNA PCR Negative (Negative)
--- NOTE | 2023-07-08 21:24 | PM.IMHP ---
H&P: HPI History of Present Illness Date/Time: 07/08/23 21:24 Chief Complaint: cough Narrative: 77-year-old male with a history of dementia and asthma presented for c/o cough for 4 weeks, and now with fatigue and decreased appetite. has accompanied pt and states he has not eaten in 2 days, and has not wanted to get out of bed. Pt has cough at baseline but reports increase in sputum production. Denies chest pain, heart racing, sob, wheezing, n/v/d/f/c. He was evaluated in the ED and found to have left lower lobe pneumonia, he received ceftriaxone and azithromycin, he wants some medication for cough. He denied any complaint currently except intermittent cough Review of Systems Review of Systems: All systems reviewed & are unremarkable except as noted in HPI and below PMFSH Past Medical History Medical History Dementia Hyperglycemia Unspecified asthma, uncomplicated Family History Family History Mother Patient's mother is in good health Sibling Cerebrovascular accident, Onset Age: 71 Patient's brother is , Onset Age: 71 Father Patient's father is , Onset Age: 51 Social History Social History Smoking status: Never smoker Second hand tobacco smoke exposure: No Alcohol intake: never Substance use: never Lack of Transportation: No Lack of Food: Never True Current Housing: I Have Housing Concerned About Future Housing: No Difficulty Paying Gas/Electric Bills: No Difficulty Paying for Meds: No Currently Unemployed: No Education: High School Diploma/GED Difficulty w/ Childcare or Family Care: No Spiritual care concerns: No Meds Home Medications and Allergies Home Medications Medication Instructions Recorded Confirmed Type rivastigmine 4.6 mg/24 hour 4.6 mg transdermal DAILY 12/12/21 07/08/23 History transdermal patch albuterol sulfate 90 mcg/actuation 2 puff inhalation QID PRN 02/16/22 07/08/23 Rx aerosol inhaler shortness of breath or wheezing #8 grams memantine 5 mg tablet 5 mg PO DAILY 12/16/22 07/08/23 History quetiapine 25 mg tablet 25 mg PO BID 12/16/22 07/08/23 History fluticasone 500 mcg-salmeterol 50 1 inh inhalation Q12H #60 ea 03/29/23 07/08/23 Rx mcg/dose blistr powdr for inhalation (Wixela Inhub) benzonatate 200 mg capsule 200 mg PO TID PRN cough #30 caps 06/30/23 07/08/23 Rx Allergies Allergy/AdvReac Type Severity Reaction Status Date / Time No Known Allergies Allergy Verified 07/08/23 15:38 Vital Signs Vital Signs - 24 hr 07/08/23 17:01 Temperature 97.4 F L Pulse Rate 74 Respiratory Rate 18 Blood Pressure 105/61 Pulse Oximetry 97 Oxygen Delivery Room Air Exam Narrative: GENERAL: Well-appearing, well-nourished, and in no acute distress. HEAD: Normocephalic, atraumatic. EYES: PERRLA and EOMI. ENT: Nares clear, no rhinorrhea or epistaxis.? Mucous membranes moist. NECK: Supple. CHEST: Clear to auscultation.? No respiratory distress. HEART: Regular rate and rhythm.? No murmur heard.? Normal peripheral pulses. ABDOMEN: Soft, nontender, nondistended, normal active bowel sounds. EXTREMITIES: Normal range of motion.? No edema. SKIN: Warm, dry, no rash. NEURO: No focal deficits.? Alert and pleasantly confused to patient's baseline. PSYCH: Normal mood and affect. ? H&P: Results Labs Labs: Short CBC 07/08/23 Range/Units 17:18 WBC 10.1 H (4.5-10.0) K/mm3 Hgb 13.6 L (14.0-18.0) g/dL Hct 41.7 L (42.0-52.0) % Plt Count 152 (150-375) k/mm3 BMP 07/08/23 17:18 Sodium 138 Potassium 3.7 Chloride 102 Carbon Dioxide 25 BUN 13 D Creatinine 0.80 Glucose 104 Calcium 8.9 Cardiac Enzymes 07/08/23 Range/Units 19:29 Troponin I < 0.012 (0.000-0.034) ng/mL Yanna
[2023-07-08 21:28] VITALS: BP 122/64; PULSE 72; RESP 15; O2SAT 98
[2023-07-09] VITALS (12 sets, daily range): BP systolic 93–112; BP diastolic 50–75; PULSE 67–79; RESP 14–20; TEMP 36.3–36.6; O2SAT 93–98
--- NOTE | 2023-07-09 01:01 | ADMGEN ---
This patient, Fer Aparicio, was admitted to [facility] Surg Room 304-02. Patient/family oriented to hospital policies and general routines including ID bracelet, bed and alarms, visiting hours, pain management, procedures, bathroom and other care routines, personal items, smoking policy, room service/diet, and visiting hours. Information on how to activate the Rapid Response Team has been discussed. Patient/Family are encouraged to report perceived risks to care and to ask questions if they do not understand what they are told or what they should do.
[2023-07-09] MEDS: SODIUM CHLORIDE 0.9% IV 1,000 ML 75 ML IV CONT (01:25)
[2023-07-09] MEDS: ALBUTEROL SULFATE NEB 2.5 MG/3 ML INH INHALATION ×4 (03:02→20:10)
[2023-07-09] MEDS: IPRATROPIUM BR 0.02% INH SOLN 0.5 MG/2.5 ML VIAL INHALATION ×4 (03:02→20:10)
--- NOTE | 2023-07-09 06:49 | PC.NURSE ---
PT. is confused and will not let lab draw blood at this time.
[2023-07-09 08:49] LABS: Basophils Percent Auto 0.3 % (0.2-1.2); Eosinophils Absolute Auto 0.2 K/mm3 (0-0.3); Eosinophils Percent Auto 2.5 % (0-4.4); Hematocrit 38.7 % (42.0-52.0); Hemoglobin 12.3 g/dL (14.0-18.0); Immature Granulocyte Absolute 0.05 K/mm3 (0.00-0.031); Immature Granulocyte Percent A 0.6 % (0-0.5); Immature Platelet Fraction Pct 5.6 % (0.9-11.2); Lymphocytes Percent Auto 9.9 % (18.3-44.2); Mean Corpuscular HGB Conc 31.8 g/dl (32-36); Mean Corpuscular Hemoglobin 30.5 pg (26-34); Mean Platelet Volume 10.6 fl (7.4-10.4); Monocytes Absolute Auto 0.6 K/mm3 (0.1-0.6); Monocytes Percent Auto 6.7 % (2.6-8.5); Neutrophils Absolute Auto 7.3 K/mm3 (1.3-6.7); Platelet Count Result 136 k/mm3 (150-375); Red Blood Count 4.03 M/mm3 (4.6-6.20); Red Cell Distribution Width 13.2 % (11.5-14.5); White Blood Count 9.1 K/mm3 (4.5-10.0)
[2023-07-09 08:55] LABS: Anion Gap 8 mmol/L (8-16); Blood Urea Nitrogen 10 mg/dL (9-20); Calcium 8.3 mg/dL (8.4-10.2); Carbon Dioxide 24 mmol/L (22-30); Chloride 106 mmol/L (98-107); Estimated CRCL calculation 91 ml/min; Estimated Glomerular Filt Rate > 60; Glucose 99 mg/dL (65-110); Potassium 3.5 mmol/L (3.4-5.0); Sodium 138 mmol/L (137-145)
--- NOTE | 2023-07-09 11:09 | PM.IMPN ---
Progress Note: A&P Assessment and Plan (1) Left lower lobe pneumonia: Code(s): J18.9 - Pneumonia, unspecified organism Status: Acute Assessment and Plan: Rocephin and azithromycin initiated by the emergency department and will be continued. P.r.n. nebs available. MRSA PCR screen, pneumococcal antigen, Legionella antigen, Sputum Culture ordered (2) Dementia: Code(s): F03.90 - Unspecified dementia, unspecified severity, without behavioral disturbance, psychotic disturbance, mood disturbance, and anxiety Status: Acute Assessment and Plan: Continue home medications (3) Unspecified asthma, uncomplicated: Code(s): J45.909 - Unspecified asthma, uncomplicated Status: Acute Assessment and Plan: Continue home medications Plan Diet: heart healthy VTE Prophylaxis: SCD/Adal hose GI prophylaxis: not indicated Lines: PIV Code status: Full Code Time Spent With Patient Time with patient: 25 - 35 minutes Subjective Date/time seen: 07/09/23 11:09 Interval history: From prior chart: 07/08: 77-year-old male with a history of dementia and asthma presented for c/o cough for 4 weeks, and now with fatigue and decreased appetite. has accompanied pt and states he has not eaten in 2 days, and has not wanted to get out of bed. Pt has cough at baseline but reports increase in sputum production. Denies chest pain, heart racing, sob, wheezing, n/v/d/f/c. He was evaluated in the ED and found to have left lower lobe pneumonia, he received ceftriaxone and azithromycin, he wants some medication for cough. He denied any complaint currently except intermittent cough 07/09: Patient evaluated with family at bedside. Patient reports only bothersome cough. Family states cough has been ongoing for several weeks but his weakness just developed a couple days ago. Patient reports he had a good breakfast and much improvement in appetite. He is not on oxygen at this time. Patient is confused which family states is baseline. They also report it gets worse at night. He often thinks he is in the wrong house and is constantly looking for a second dog (they only have 1 dog.) Family states he may get combative. Patient denies chest pain difficulty breathing nausea vomiting constipation diarrhea bowel or bladder problems. Review of Systems Review of Systems: All systems reviewed & are unremarkable except as noted in HPI and below Exam Narrative: GENERAL: Mildly ill-appearing, well-nourished, and in no acute distress. HEAD: Normocephalic, atraumatic. EYES: PERRLA and EOMI. ENT: Nares clear, no rhinorrhea or epistaxis.? Mucous membranes moist. NECK: Supple. No JVD CHEST: Clear to auscultation.? No respiratory distress. HEART: Regular rate and rhythm.? No murmur heard.? Normal peripheral pulses. ABDOMEN: Soft, nontender, nondistended, normal active bowel sounds. EXTREMITIES: Normal range of motion.? No edema. SKIN: Warm, dry, no rash. NEURO: No focal deficits.? Alert and pleasantly confused to patient's baseline. PSYCH: Normal mood and affect. ? Objective Data Vital Signs Vital Signs: Vital Signs - 24 hr 07/08/23 17:01 07/08/23 21:28 07/09/23 01:13 Temperature 36.3 C L 36.6 C Pulse Rate 74 72 78 Respiratory Rate 18 15 14 Blood Pressure 105/61 122/64 95/50 L Pulse Oximetry 97 98 93 Oxygen Delivery Room Air Fraction of Inspired Oxygen 07/09/23 03:02 07/09/23 03:10 07/09/23 03:11 Temperature Pulse Rate 73 75 Respiratory Rate 18 18 18 Blood Pressure Pulse Oximetry 98 Oxygen Delivery Room Air Fraction of Inspired Oxygen 21 07/09/23 05:00 07/09/23 05:39 07/09/23 09:04 Temperature 36.6 C Pulse Rate 79 Respiratory Rate 16 Blood Pressure 112/63 Pulse Oximetry 97 94 Oxygen Delivery Room Air Room Air Fraction of Inspired Oxygen 07/09/23 09:04 07/09/23 09:22 Temperature Pulse Rate 67 69 Respiratory Rate 20 20 Blood Pressure Pulse Oximetry
[2023-07-09] MEDS: guaiFENesin/DEXTROMETHORPHAN 10 ML UDC PO (12:09)
[2023-07-09] MEDS: OLANZapine 5 MG TABLET PO (15:13)
--- NOTE | 2023-07-09 16:52 | PC.NURSE ---
pt is combative and roaming the halls. unable to be re-directed. when staff attempts to walk pt back to room he becomes more combative. pt has tried going down the stairs to leave, walks in the hallways leading to other units and refuses to sit in his room but declines sitting at the nurses station or anywhere else. Pt was punching the cabinets in his room, disrupting the roommate, and throwing the kleenex box around in his room. Pt also pressed his finger to RN's forehead and told RN you are ruining my life . told RN he wants to kill her. 5mg PO Zyprexa ordered by BERTHA Morataya. will continue to monitor pt. family called and is at bedside at this time.
[2023-07-09] MEDS: LORazepam INJ (*CRX) 2 MG/ML VIAL (17:58)
[2023-07-09] MEDS: FLUTICASONE/SALMETEROL 230-21 MCG INHALER 1 PUFF 2 PUFF INHALATION (20:16)
[2023-07-09] MEDS: AZITHROMYCIN 500 MG/NS 250 ML 500 MG/250 ML BAG 250 MG IVPB (20:58)
[2023-07-09] MEDS: QUEtiapine FUMARATE 25 MG TABLET PO (21:07)
[2023-07-10 06:00] VITALS: BP 111/57; PULSE 80; RESP 18; TEMP 36.3; O2SAT 94
[2023-07-10 06:08] LABS: Basophils Percent Auto 0.4 % (0.2-1.2); Eosinophils Absolute Auto 0.4 K/mm3 (0-0.3); Eosinophils Percent Auto 5.3 % (0-4.4); Hematocrit 36.6 % (42.0-52.0); Hemoglobin 11.6 g/dL (14.0-18.0); Immature Granulocyte Absolute 0.03 K/mm3 (0.00-0.031); Immature Granulocyte Percent A 0.4 % (0-0.5); Immature Platelet Fraction Pct 6.1 % (0.9-11.2); Lymphocytes Absolute Auto 1.31 K/mm3 (0.9-3.2); Lymphocytes Percent Auto 18.9 % (18.3-44.2); Mean Corpuscular HGB Conc 31.7 g/dl (32-36); Mean Corpuscular Hemoglobin 30.1 pg (26-34); Mean Corpuscular Volume 95.1 fl (80-100); Mean Platelet Volume 10.9 fl (7.4-10.4); Monocytes Absolute Auto 0.7 K/mm3 (0.1-0.6); Monocytes Percent Auto 10.1 % (2.6-8.5); Neutrophils Absolute Auto 4.5 K/mm3 (1.3-6.7); Neutrophils Percent Auto 64.9 % (45.5-73.1); Platelet Count Result 146 k/mm3 (150-375); Red Blood Count 3.85 M/mm3 (4.6-6.20); Red Cell Distribution Width 13.1 % (11.5-14.5); White Blood Count 6.9 K/mm3 (4.5-10.0)
[2023-07-10 06:27] LABS: Alanine Aminotransferase 13 U/L (6-50); Albumin Level 3.1 g/dL (3.5-5.1); Alkaline Phosphatase 72 U/L (38-126); Anion Gap 7 mmol/L (8-16); Aspartate Amino Transferase 16 U/L (17-59); Bilirubin,Total 0.6 mg/dL (0.2-1.3); Blood Urea Nitrogen 10 mg/dL (9-20); Calcium 8.2 mg/dL (8.4-10.2); Carbon Dioxide 26 mmol/L (22-30); Chloride 104 mmol/L (98-107); Estimated CRCL calculation 79 ml/min; Estimated Glomerular Filt Rate > 60; Glucose 95 mg/dL (65-110); Potassium 3.8 mmol/L (3.4-5.0); Sodium 137 mmol/L (137-145)
[2023-07-10] MEDS: ALBUTEROL SULFATE NEB 2.5 MG/3 ML INH INHALATION (07:15)
[2023-07-10] MEDS: IPRATROPIUM BR 0.02% INH SOLN 0.5 MG/2.5 ML VIAL INHALATION (07:15)
[2023-07-10 07:17] VITALS: PULSE 73; RESP 20
[2023-07-10] MEDS: FLUTICASONE/SALMETEROL 230-21 MCG INHALER 1 PUFF 2 PUFF INHALATION (07:17)
[2023-07-10 07:18] VITALS: O2SAT 94
[2023-07-10 07:29] VITALS: PULSE 74; RESP 20
[2023-07-10 09:22] LABS: MRSA (PCR) NOT DETECTED (NOT DETECTE)
[2023-07-10] MEDS: OLANZapine 5 MG TABLET PO (10:26)
[2023-07-10] MEDS: QUEtiapine FUMARATE 25 MG TABLET PO (10:26)
[2023-07-10] MEDS: MEMANTINE 5 MG TABLET PO (10:26)
--- NOTE | 2023-07-10 12:01 | PM.DS ---
DS: Admitting Diagnosis Discharge Date 07/10/2023 Admitting Diagnosis Left lower lobe pneumonia, dementia DS: Discharge Diagnosis Discharge Diagnosis (1) Left lower lobe pneumonia: Code(s): J18.9 - Pneumonia, unspecified organism Status: Acute (2) Dementia: Code(s): F03.90 - Unspecified dementia, unspecified severity, without behavioral disturbance, psychotic disturbance, mood disturbance, and anxiety Status: Acute (3) Unspecified asthma, uncomplicated: Code(s): J45.909 - Unspecified asthma, uncomplicated Status: Acute DS: Summary Hospital Course Reason for hospitalization: Left lower lobe pneumonia and dementia Hospital Course: 07/08:? 77-year-old male with a history of dementia and asthma presented for c/o cough for 4 weeks, and now with fatigue and decreased appetite. has accompanied pt and states he has not eaten in 2 days, and has not wanted to get out of bed. Pt has cough at baseline but reports increase in sputum production. Denies chest pain, heart racing, sob, wheezing, n/v/d/f/c. He was evaluated in the ED and found to have left lower lobe pneumonia, he received ceftriaxone and azithromycin, he wants some medication for cough. He denied any complaint currently except intermittent cough 07/09:? Patient evaluated with family at bedside.? Patient reports only bothersome cough.? Family states cough has been ongoing for several weeks but his weakness just developed a couple days ago.? Patient reports he had a good breakfast and much improvement in appetite.? He is not on oxygen at this time.? Patient is confused which family states is baseline.? They also report it gets worse at night.? He often thinks he is in the wrong house and is constantly looking for a second dog (they only have 1 dog.)? Family states he may get combative.? Patient denies chest pain difficulty breathing nausea vomiting constipation diarrhea bowel or bladder problems. After I left for the day on 07/09, I was notified by phone that patient had been up out of bed wondering about the hallways into and out of other rooms and fighting with staff and family.? Due to patient's aggressive behavior, medication was ordered to try to help him relax.? This included oral Zyprexa and when this was not sufficient IM Haldol and Ativan.? Patient has severe dementia gets worse in the late afternoon and evening especially since he is in a new environment.? As patient is not requiring oxygenation we will consider discharge on oral antibiotics after re-evaluation. 07/10: Patient resting comfortably. He will wake up, talk, stand up to urinate and then states that he wants to lay back down and rest. Patient denies difficulty breathing, states he does have a cough. He denies any pain, bowel or bladder problems. He still does not require any oxygenation. We will prescribe oral antibiotics, cough medication and discharge to more familiar home environment. Zyprexa also prescribed for HS use at home to help decrease violent dementia episodes like what he exhibited yesterday. Status at Discharge Cognitive/behavioral status at discharge: awake, confused Functional status at discharge: independent ambulation Overall status at discharge: patient is back to baseline Time Spent with Patient Time attestation: Total time spent providing and/or coordinating discharge services: 35 minutes Time spent: Greater than 30 minutes Exam Narrative: GENERAL: well appearing, well-nourished, and in no acute distress. HEAD: Normocephalic, atraumatic. EYES: PERRLA and EOMI. ENT: Nares clear, no rhinorrhea or epistaxis.? Mucous membranes moist. NECK: Supple. No JVD CHEST: Clear to auscultation.? No respiratory distress. HEART: Regular rate and rhythm.? No murmur heard.? Normal peripheral pulses. ABDOMEN: Soft, nontender, nondistended, normal active bowel sounds. EXTREMITIES: Normal range of motion.? No edema. SKIN: Warm, dry, no rash. NEURO: No focal deficits.? Al
[2023-07-10] MEDS: RIVASTIGMINE TARTRATE 4.6 MG PATCH 1 PATCH TRANSDERM (12:41)
[2023-07-10 14:00] VITALS: BP 114/65; PULSE 69; RESP 18; TEMP 36.8; O2SAT 94
--- NOTE | 2023-07-10 15:43 | PCRCNOTE ---
time of tx passed, will continue at 20:00
[2023-07-13 03:15] LABS: Legionella pneumophila Ag Ur Not Detected (Not Detected)
[2023-07-13 11:05] LABS: Pneumococcal Antigen Urine Detected (Not Detected)
--- NOTE | 2023-07-15 09:52 | PC.NURSE ---
Blood cultures are negative. Urine legionella is negative. Urine pneumococcal antigen is positive. Maame Covarrubias APRN aware.
== END 2023-07-10 16:10 | disposition home or self-care (01) | DRG 195 ==
LOC: ANHED 07-09 00:10 → ANH3MEDSUR 07-09 00:32
PROVIDERS: Student in an Organized Health Care Education/Training Program; Admitting Provider Student in an Organized Health Care Education/Training Program; Emergency Provider Emergency Medicine; PCP Internal Medicine; Visit Provider Nurse Practitioner
DX: J18.9 Pneumonia, unspecified organism (principal); F03.90 Unspecified dementia, unspecified severity, without behavioral disturbance, psychotic disturbance, mood disturbance, and anxiety; J45.909 Unspecified asthma, uncomplicated; Z28.21 Immunization not carried out because of patient refusal; Z20.822 Contact with and (suspected) exposure to COVID-19
CPT/HCPCS: 36415; 71046; 80048; 80053; 83605; 83880; 84145; 84484; 85025; 85055; 87040; 87449; 87636; 87641; 87899; 93005; 94640; 96365; 96367; 99213; 99285; A9270; G0378; G0463; J0456; J0696; J2060; J7030

== ENCOUNTER 2023-10-26 16:29 | Outpatient (CLI) | payer MEDICARE, SELFPAY ==
--- NOTE | ~2023-10-26 | CT_ITS ---
Clinical Indication: Weight loss CT Scan of the Chest, Abdomen, and Pelvis without Contrast: Technique: Contiguous sections were acquired throughout the chest, abdomen, and pelvis without IV con trast administration. Dose reduction technique was used on this scan by utilizing automated exposure control and iterative reconstruction technique. The dose-length product (DLP) was 529.93 mGy-cm. COMPARISON: 12/23/2021 Findings: There is no evidence of any significant mediastinal, hilar or axillary lymphadenopathy. Coronary mikala ry calcifications are present. Small pericardial effusion present. Moderate to large hiatal hernia pr esent. No pleural effusions. Linear left basilar scarring noted. There are several scattered calcified granulomas. The liver, spleen, pancreas, gallbladder, adrenals and kidneys are within normal limits. There are at herosclerotic calcifications of the aorta. No lymphadenopathy. No bowel obstruction or bowel wall thickening. There is no evidence to suggest acute appendicitis. Urinary bladder is unremarkable. Prostate gland is enlarged. No ascites. There is 1 cm anterolisthesi s of L5 over S1, with severe lumbar degenerative spondylosis, especially at L2-L3, L4-L5, L5-S1. Impression: Moderate to large hiatal hernia. Small pericardial effusion. Enlarged prostate gland. Reviewed, dictated and finalized at location . ER TANK TENDER Impression: Moderate to large hiatal hernia. Small pericardial effusion. Enlarged prostate gland.
== END 2023-10-26 16:30 | disposition home or self-care (01) ==
LOC: ANHIMG 16:42
PROVIDERS: PCP Physician Assistant; Visit Provider Physician Assistant
DX: K44.9 Diaphragmatic hernia without obstruction or gangrene (principal); I31.39 Other pericardial effusion (noninflammatory); N40.0 Benign prostatic hyperplasia without lower urinary tract symptoms; Z72.0 Tobacco use
CPT/HCPCS: 71250; 74176

== ENCOUNTER 2023-11-09 01:12 | Day surgery (SDC) | payer MEDICARE, SELFPAY ==
[2023-11-03 11:03] VITALS: BMI 20.1
--- NOTE | 2023-11-05 10:39 | SUR.PREOP ---
Patient called regarding upcoming procedure. Message left regarding appointment times.
[2023-11-09 10:33] VITALS: BP 118/82; PULSE 82; RESP 18; TEMP 36.6; O2SAT 99
[2023-11-09] MEDS: LACTATED RINGERS 1,000 ML 150 ML IV CONT (10:38)
--- NOTE | 2023-11-09 10:56 | PM.HPGS ---
History of Present Illness History of Present Illness Consent: Risks, benefits, and alternatives have been discussed and questions answered. Patient agrees to proceed with procedure. Chief complaint: Abnormal Weight loss,Hx colon polyps Narrative: Fer Aparicio is a 78 year old male with weight loss, reviewed recent CT scan- no malignancy, hiatal hernia. Last colonoscopy 2015 with several polyps removed. Review of Systems Review of Systems: All systems reviewed & are unremarkable except as noted in HPI and below PMFSH Past Medical History Medical History (Updated 11/09/23 @ 10:58 by Rasheed Webber MD) Adenomatous colon polyp Dementia Hyperglycemia Unspecified asthma, uncomplicated Weight loss Family History Family History Mother Patient's mother is in good health Sibling Cerebrovascular accident, Onset Age: 71 Patient's brother is , Onset Age: 71 Father Patient's father is , Onset Age: 51 Social History Social History Years smoked: 20 Smoking status: Never smoker Tobacco type: cigarettes Second hand tobacco smoke exposure: No Alcohol intake: never Substance use: never Lack of Transportation: No Lack of Food: Never True Current Housing: I Have Housing Concerned About Future Housing: No Difficulty Paying Gas/Electric Bills: No Difficulty Paying for Meds: No Currently Unemployed: No Education: High School Diploma/GED Difficulty w/ Childcare or Family Care: No Living arrangements: with family Spiritual care concerns: No Meds Home Medications and Allergies Home Medications Medication Instructions Recorded Confirmed Type rivastigmine 4.6 mg/24 hour 4.6 mg transdermal DAILY 12/12/21 11/09/23 History transdermal patch albuterol sulfate 90 mcg/actuation 2 puff inhalation QID PRN 02/16/22 11/09/23 Rx aerosol inhaler shortness of breath or wheezing #8 grams quetiapine 25 mg tablet 25 mg PO BID 12/16/22 11/09/23 History fluticasone 500 mcg-salmeterol 50 1 inh inhalation Q12H #60 ea 03/29/23 11/09/23 Rx mcg/dose blistr powdr for inhalation (Wixela Inhub) escitalopram oxalate 10 mg tablet 10 mg PO DAILY 11/03/23 11/09/23 History memantine 10 mg tablet 10 mg PO BID 11/03/23 11/09/23 History Allergies Allergy/AdvReac Type Severity Reaction Status Date / Time No Known Allergies Allergy Verified 11/09/23 10:31 Vital Signs Vital Signs - 24 hr 11/09/23 10:33 Temperature 97.9 F Pulse Rate 82 Respiratory Rate 18 Blood Pressure 118/82 Pulse Oximetry 99 Oxygen Delivery Room Air Exam Const: General: comfortable and no acute distress HENMT: Face/Nose/Sinus: Normal nares present Eyes: General: appearance normal, both eyes and all related structures Neck: Neck: no JVD Resp: Auscultation: clear to auscultation bilaterally Cardio: Rate: regular rate Rhythm: regular rhythm GI: Inspection: non-distended GI Palp: Yes Soft to palpation Skin: General skin exam: normal color Neuro: Speech: normal speech Motor exam (neuro): 5/5 motor strength present throughout Extrem: General: normal to inspection Psych: Mental Status: mental status grossly normal Assessment and Plan Assessment and plan (1) Weight loss: Code(s): R63.4 - Abnormal weight loss Status: Acute Assessment and Plan: egd and colonoscopy (2) Dementia: Code(s): F03.90 - Unspecified dementia, unspecified severity, without behavioral disturbance, psychotic disturbance, mood disturbance, and anxiety Status: Acute (3) Adenomatous colon polyp: Code(s): D12.6 - Benign neoplasm of colon, unspecified Status: Acute
--- NOTE | 2023-11-09 10:58 | WPDANESEPPF ---
Anes - Initial Pre Proc Eval Procedure: Operation Date: 11/09/23 11:30 Proposed Procedures p Esophagogastroduodenoscopy & Colonoscopy - Rasheed Webber MD Date/Time: 11/09/23 10:58 Surgeon: Rasheed Webber MD Pre Op Diagnosis: Abnormal Weight loss,Hx colon polyps Patient Data Age: 78 Gender: M Height: 1.93 m Weight: 75 kg Last Vital Signs Temp 97.9 F 11/09/23 10:33 Pulse 82 11/09/23 10:33 Resp 18 11/09/23 10:33 BP 118/82 11/09/23 10:33 Pulse Ox 99 11/09/23 10:33 O2 Del Method Room Air 11/09/23 10:33 Allergies Allergy/AdvReac Type Severity Reaction Status Date / Time No Known Allergies Allergy Verified 11/09/23 10:31 Home Medications Medication Instructions Recorded Confirmed Type rivastigmine 4.6 mg/24 hour 4.6 mg transdermal DAILY 12/12/21 11/09/23 History transdermal patch albuterol sulfate 90 mcg/actuation 2 puff inhalation QID PRN 02/16/22 11/09/23 Rx aerosol inhaler shortness of breath or wheezing #8 grams quetiapine 25 mg tablet 25 mg PO BID 12/16/22 11/09/23 History fluticasone 500 mcg-salmeterol 50 1 inh inhalation Q12H #60 ea 03/29/23 11/09/23 Rx mcg/dose blistr powdr for inhalation (Wixela Inhub) escitalopram oxalate 10 mg tablet 10 mg PO DAILY 11/03/23 11/09/23 History memantine 10 mg tablet 10 mg PO BID 11/03/23 11/09/23 History Patient hx anesthesia problems: none Family hx anesthesia problems: none Results Review: All pre-operative results and documents have been reviewed as part of the pre-operative evaluation. [facility] Past Medical History Medical History (Updated 11/09/23 @ 10:58 by Rasheed Webber MD) Adenomatous colon polyp Dementia Hyperglycemia Unspecified asthma, uncomplicated Weight loss Family History Family History Mother Patient's mother is in good health Sibling Cerebrovascular accident, Onset Age: 71 Patient's brother is , Onset Age: 71 Father Patient's father is , Onset Age: 51 Social History Social History Years smoked: 20 Smoking status: Never smoker Tobacco type: cigarettes Second hand tobacco smoke exposure: No Alcohol intake: never Substance use: never Lack of Transportation: No Lack of Food: Never True Current Housing: I Have Housing Concerned About Future Housing: No Difficulty Paying Gas/Electric Bills: No Difficulty Paying for Meds: No Currently Unemployed: No Education: High School Diploma/GED Difficulty w/ Childcare or Family Care: No Living arrangements: with family Spiritual care concerns: No Anes - Eval Final PreProcedure Day of Procedure 11/09/23 10:58 Patient weight: normal Heart: regular rate and rhythm Lungs: clear to auscultation Airway: Mallampati scale class II Neurological: alert and oriented Last oral intake: >/= 8 hours ASA classification: III Emergent: no Anesthetic plan: proceed Anesthesia type and monitoring: general GIVS and standard monitoring Results Review: All pre-operative results and documents have been reviewed as part of the pre-operative evaluation. Informed Consent: The patient's anesthetic plan and its attendant risks and benefits were discussed with the patient/family/POA. Questions were solicited and answers provided to the satisfaction of the patient/family/POA.
--- NOTE | 2023-11-09 11:18 | SUR.OPER ---
EGD: [id number] COLON: Start 1117
[2023-11-09 11:35] VITALS: BP 106/61; PULSE 59; RESP 15; O2SAT 99
[2023-11-09 11:45] VITALS: BP 116/71; PULSE 60; RESP 13; O2SAT 100
[2023-11-09 11:55] VITALS: BP 113/65; PULSE 60; RESP 13; O2SAT 100
== END 2023-11-09 12:08 | disposition home or self-care (01) ==
PROVIDERS: PCP Physician Assistant; Visit Provider Internal Medicine Gastroenterology
PROC: 0DJ08ZZ Inspection of Upper Intestinal Tract, Via Natural or Artificial Opening Endoscopic (ICD-10-PCS; CPT 43235; principal; 2023-11-09 11:30)
DX: D12.0 Benign neoplasm of cecum (principal); D12.3 Benign neoplasm of transverse colon; D12.4 Benign neoplasm of descending colon; K57.30 Diverticulosis of large intestine without perforation or abscess without bleeding; K64.8 Other hemorrhoids; K44.9 Diaphragmatic hernia without obstruction or gangrene; R63.4 Abnormal weight loss; Z68.20 Body mass index [BMI] 20.0-20.9, adult; F03.90 Unspecified dementia, unspecified severity, without behavioral disturbance, psychotic disturbance, mood disturbance, and anxiety; J45.909 Unspecified asthma, uncomplicated; Z79.51 Long term (current) use of inhaled steroids; Z79.899 Other long term (current) drug therapy
CPT/HCPCS: 45380; 45385; 43239; 88305; J2704; J7120

== ENCOUNTER 2023-11-25 12:14 | Emergency (ER) | payer MEDICARE, SELFPAY ==
--- NOTE | ~2023-11-25 | CT_ITS ---
EXAMINATION: CT brain wo con INDICATION: Altered mental status COMPARISON: 04/08/2022 TECHNIQUE: Standard unenhanced head CT. The dose-length product (DLP) was 681.00 mGy-cm. The mA was a djusted according to patient size. Iterative reconstruction technique was employed. FINDINGS: No acute intraparenchymal hemorrhage. No evidence of mass lesion. No evidence of acute infa rction. There is moderate periventricular and subcortical hypodensity probably related to small vesse l ischemic disease. There is moderate prominence of the sulci and ventricles related to cerebral atro phy. Intracranial calcified cerebral atherosclerosis is noted. No extra-axial collections. No mass ef fect or midline shift. The orbits and soft tissues are unremarkable. There is chronic pansinusitis wi th near complete occlusion of the paranasal sinuses. There are bilateral mastoid effusions. IMPRESSION: 1. No acute intracranial abnormality. 2. Age related findings. 3. Chronic pansinusitis. Reviewed, dictated and finalized at location F.
[2023-11-25 12:20] VITALS: BP 121/65; PULSE 100; RESP 17; TEMP 36.5; O2SAT 100
--- NOTE | 2023-11-25 13:33 | ECG_ITS ---
Measurements Intervals [place] Rate: 89 P: 95 LA: 171 QRS: -80 QRSD: 134 T: 57 QT: 359 QTc: 438 Interpretive Statements SINUS RHYTHM WITH SINUS ARRHYTHMIA RIGHT BUNDLE BRANCH BLOCK LEFT ANTERIOR FASCICULAR BLOCK BASELINE ARTIFACT- I, II, III, AVR, AVL, AVF, V1-V6 ABNORMAL ECG COMPARED TO ECG 07/08/2023 20:08:37 SINUS ARRHYTHMIA NOW PRESENT Electronically Signed On 11-25-2023 13:43:25 CDT by Reyes Beard D.O.
[2023-11-25 14:15] LABS: Basophils Absolute Auto 0.1 K/mm3 (0.0-0.1); Basophils Percent Auto 0.8 % (0.2-1.2); Eosinophils Absolute Auto 1.1 K/mm3 (0-0.3); Eosinophils Percent Auto 11.9 % (0-4.4); Hematocrit 48.3 % (42.0-52.0); Hemoglobin 15.5 g/dL (14.0-18.0); Immature Granulocyte Absolute 0.03 K/mm3 (0.00-0.031); Immature Granulocyte Percent A 0.3 % (0-0.5); Immature Platelet Fraction Pct 7.7 % (0.9-11.2); Lymphocytes Absolute Auto 1.59 K/mm3 (0.9-3.2); Lymphocytes Percent Auto 17.6 % (18.3-44.2); Mean Corpuscular HGB Conc 32.1 g/dl (32-36); Mean Corpuscular Hemoglobin 30.3 pg (26-34); Mean Corpuscular Volume 94.5 fl (80-100); Monocytes Absolute Auto 0.7 K/mm3 (0.1-0.6); Monocytes Percent Auto 7.2 % (2.6-8.5); Neutrophils Absolute Auto 5.6 K/mm3 (1.3-6.7); Neutrophils Percent Auto 62.2 % (45.5-73.1); Platelet Count Result 135 k/mm3 (150-375); Red Blood Count 5.11 M/mm3 (4.6-6.20)
[2023-11-25 14:23] LABS: Alanine Aminotransferase 13 U/L (6-50); Albumin Level 4.2 g/dL (3.5-5.1); Alkaline Phosphatase 84 U/L (38-126); Anion Gap 6 mmol/L (4-12); Aspartate Amino Transferase 19 U/L (17-59); Bilirubin,Total 0.8 mg/dL (0.2-1.3); Blood Urea Nitrogen 17 mg/dL (9-20); Calcium 9.2 mg/dL (8.4-10.2); Carbon Dioxide 29 mmol/L (22-30); Chloride 103 mmol/L (98-107); Estimated CRCL calculation 64 ml/min; Estimated Glomerular Filt Rate > 60; Glucose 69 mg/dL (65-110); Potassium 3.6 mmol/L (3.4-5.0); Sodium 138 mmol/L (137-145)
[2023-11-25 14:50] LABS: Influenza A QL RT-PCR Negative (Negative); Influenza B QL RT-PCR Negative (Negative); RSV RNA, RT-PCR Negative (Negative); SARS-CoV-2 RNA PCR Negative (Negative)
--- NOTE | 2023-11-25 15:42 | ED.GENADULT ---
HPI - General Adult General Chief complaint: Psychiatric Symptoms <Atul Ferrell MD - Last Filed: 11/26/23 20:56> Stated complaint: behavioral issues, worsening dementia - unsafe <Atul Ferrell MD - Last Filed: 11/26/23 20:56> Time Seen by Provider: 11/25/23 13:18 <Atul Ferrell MD - Last Filed: 11/26/23 20:56> History of Present Illness HPI narrative: 78-year-old male history was Alzheimer's disease presenting the emergency department for evaluation of increased agitation and aggression today. Family feels that this has been a steady progression and worsening of his aggression and they do not feel that they are able to care for him at home and they are seeking placement into a memory care unit/geriatric unit. <Atul Ferrell MD - Last Filed: 11/26/23 20:56> Related Data Home medications: Home Medications Medication Instructions Recorded Confirmed rivastigmine 4.6 mg/24 hour 4.6 mg transdermal DAILY 12/12/21 11/09/23 transdermal patch quetiapine 25 mg tablet 25 mg PO BID 12/16/22 11/09/23 escitalopram oxalate 10 mg tablet 10 mg PO DAILY 11/03/23 11/09/23 memantine 10 mg tablet 10 mg PO BID 11/03/23 11/09/23 <Atul Ferrell MD - Last Filed: 11/26/23 20:56> Allergies/adverse reactions: Allergies Allergy/AdvReac Type Severity Reaction Status Date / Time No Known Allergies Allergy Verified 11/25/23 13:45 <Atul Ferrell MD - Last Filed: 11/26/23 20:56> Review of Systems Review of Systems: All systems reviewed & are unremarkable except as noted in HPI and below <Atul Ferrell MD - Last Filed: 11/26/23 20:56> [facility] Past Medical History Medical History: Medical History (Updated 11/27/23 @ 00:02 by Aiyana Brown) Adenomatous colon polyp Dementia Hyperglycemia Unspecified asthma, uncomplicated Weight loss <Atul Ferrell MD - Last Filed: 11/26/23 20:56> Family History Family History: Family History Mother Patient's mother is in good health Sibling Cerebrovascular accident, Onset Age: 71 Patient's brother is , Onset Age: 71 Father Patient's father is , Onset Age: 51 <Atul Ferrell MD - Last Filed: 11/26/23 20:56> Social History Social History: Social History Years smoked: 20 Smoking status: Never smoker Tobacco type: cigarettes Second hand tobacco smoke exposure: No Alcohol intake: never Substance use: never Substance use type: does not use Lack of Transportation: No Lack of Food: Never True Current Housing: I Have Housing Concerned About Future Housing: No Difficulty Paying Gas/Electric Bills: No Difficulty Paying for Meds: No Currently Unemployed: No Education: High School Diploma/GED Difficulty w/ Childcare or Family Care: No Living arrangements: with family Spiritual care concerns: No <Atul Ferrell MD - Last Filed: 11/26/23 20:56> Exam Narrative: APPEARANCE: Well appearing, no pain, no distress, well-nourished. HEAD: normocephalic, atraumatic. EYES: PERRLA/EOMI, conjunctivae clear. NOSE: Normal no drainage EARS:TMS clear with good light reflex. THROAT: Pharynx clear, no exudate. NECK: Supple. No adenopathy, no masses. RESPIRATORY: Airway patent, respirations nonlabored. Clear to auscultation bilaterally, no rales, rhonchi, wheezing. CARDIOVASCULAR: Regular rate and rhythm without murmurs rubs or gallops. ABDOMINAL: Soft, nontender, nondistended, normal bowel sounds MUSCULOSKELETAL: Moves all extremities. Strength/ROM intact, No edema, No calf tenderness. NEURO: Alert. Cranial nerves II through XII intact. Grossly intact SKIN: Warm, dry. Normal Color PSYCHIATRIC: Agitated <Atul Ferrell MD - Last Filed: 11/26/23 20:56> Course Course Emergency Course: patient was discharged and transferred
[2023-11-25 16:24] LABS: Appearance Urine Clear (Clear); Bilirubin Urine Negative (Negative); Blood Urine Negative (Negative); Color Urine Dark Yellow (Yellow); Glucose Urine UA Negative (Negative); Ketones Urine Trace mg/dL (Negative); Leukocyte Esterase Ur Negative LEU/UL (Negative); Nitrate Urine Negative (Negative); Protein Urine Negative (Negative); Specific Grav Ur 1.023 (1.001-1.035); pH Urine 5.5 (5.0-9.0)
[2023-11-25 16:25] LABS: Add Urine Microscopic? NO
[2023-11-25 16:27] VITALS: BP 131/88; PULSE 67; RESP 14; TEMP 36.6; O2SAT 98
--- NOTE | 2023-11-25 17:10 | PCCCNOTE ---
Family/ would like pt admitted to geriatric psych unit to assess and adjust medications so the pt is less aggressive and combative at times. [facility] computers are currently down so no bed availability until computers are up and running. [facility] has bed availability and POA, Voluntary admission form, facesheet, Covid results, and ER note to be faxed to
--- NOTE | 2023-11-25 18:04 | PCCCNOTE ---
Information gathered and faxed at 1800 to [facility]. Faxed information placed in patient clipboard in ED. Dr. Ferrell notified.
[2023-11-25] MEDS: HALOPERIDOL LACTATE 5 MG/ML VIAL 2 MG IM (18:18)
--- NOTE | 2023-11-25 19:21 | PC.NURSE ---
report given to Chela MCCARTHY, all questions answered
--- NOTE | 2023-11-25 21:32 | PC.NURSE ---
Crisis contacted for pt evaluation at time. Crisis to be here within two hours.
[2023-11-25 21:41] LABS: Ethanol < 10 mg/dL (<10)
[2023-11-25 22:00] LABS: Amphetamine Screen Urine Negative (Negative); Barbiturate Screen Urine Negative (Negative); Benzodiazepines Screen Urine Negative (Negative); Cannabinoid Screen Urine Negative (Negative); Cocaine Screen Urine Negative (Negative); Methadone Screen Urine Negative (Negative); Opiate Screen Urine Negative (Negative); Phencyclidine Screen Urine Negative (Negative)
--- NOTE | 2023-11-25 23:11 | PC.NURSE ---
Crisis at bedside for pt evaluation
--- NOTE | 2023-11-26 01:46 | PC.NURSE ---
Crisis evaluated pt and it was decided that pt does not meet criteria for placement for inpatient psych. of pt and crisis rep made plan of care for pt to be sent to [facility]. Pt to rest in ed through night and meet with care coordination in the morning. Pt has been calm and cooperative since this Rn assumed care of pt @1900. Pt moved from room 15 and placed in hospital bed. pt has no complaints.
[2023-11-26 01:49] VITALS: BP 135/87; PULSE 62; RESP 15; O2SAT 98
--- NOTE | 2023-11-26 07:34 | PC.NURSE ---
this rn assumed care of patient. this rn took patient report from SHARI York
--- NOTE | 2023-11-26 08:25 | PC.NURSE ---
standard breakfast tray ordered at 0810
--- NOTE | 2023-11-26 09:16 | PCCCNOTE ---
Spoke with [facility] [place], who said Mr. Aparicio was denied for not meeting criteria. I called [facility], they no longer do psychiatric. [facility] was also called, message was left, awaiting return call. I contacted [facility], pt information was faxed to them. I spoke with Abigail Tsai, who said she would call me after reviewing his case for decision on his eligibility.
--- NOTE | 2023-11-26 10:13 | PCCCNOTE ---
[id number]-Crisis called, they are going to come re-evaluate patient. [facility] in [place], [place] contacted, spoke cherrie Zafar, faxed pt information to her. They will call after reviewing.
--- NOTE | 2023-11-26 11:30 | PC.NURSE ---
Crisis and care coordination at bedside speaking with family.
--- NOTE | 2023-11-26 13:00 | PC.NURSE ---
spoke with SHARI Thornton with care coordination. waiting to hear back from [facility] and [facility]. If facilities do not accept pt, then pt will be discharged home with family.
[2023-11-26] MEDS: OLANZapine 5 MG TABLET PO (13:17)
--- NOTE | 2023-11-26 15:26 | PC.NURSE ---
[facility] called and states they do not accept pt's insurance. marketing database coordinator, Sonya, made aware. She states she has not heard from [facility] yet and will give them a call for an update.
--- NOTE | 2023-11-26 17:26 | PCCCNOTE ---
[phone] Faxed the involuntary petition/certificate to [facility]. Family updated
--- NOTE | 2023-11-26 17:27 | PCCCNOTE ---
1710- [facility] called to accept patient. Family notified.
[2023-11-26 17:43] VITALS: BP 116/99; PULSE 45; RESP 16; TEMP 37.1; O2SAT 96
== END 2023-11-26 19:53 ==
PROVIDERS: Emergency Medicine; Emergency Provider Emergency Medicine; PCP Physician Assistant
DX: G30.9 Alzheimer's disease, unspecified (principal); F02.811 Dementia in other diseases classified elsewhere, unspecified severity, with agitation; Z11.52 Encounter for screening for COVID-19; J45.909 Unspecified asthma, uncomplicated; Z86.010 Personal history of colon polyps; J32.9 Chronic sinusitis, unspecified; I45.2 Bifascicular block; Z79.899 Other long term (current) drug therapy
CPT/HCPCS: 36415; 70450; 80053; 80307; 81003; 84443; 85025; 85055; 87637; 93005; 96372; 99285; A9270; J1630

== ENCOUNTER 2024-05-04 15:41 | Emergency (ER) | payer MEDICARE, SELFPAY ==
--- NOTE | ~2024-05-04 | XR_ITS ---
EXAMINATION: [id number] DATE: 05/04/2024 17:30 INDICATION: Right chest pain. Fall. TECHNIQUE: A frontal view of the chest on 2 radiographs and 2 views on 4 radiographs of the right rib s were obtained. COMPARISON: Chest 2 views 07/08/2023 FINDINGS: There is mild scarring at left lung apex. Calcified left lung nodules are consistent with o ld granulomatous disease. No pleural effusion or pneumothorax. The heart size is normal. There is a t otal right shoulder arthroplasty. IMPRESSION: 1. No rib fracture. Reviewed, dictated and finalized at location A. IMPRESSION: 1. No rib fracture.
--- NOTE | ~2024-05-04 | CT_ITS ---
EXAMINATION: CT cervical spine wo con DATE: 05/04/2024 16:16 INDICATION: Neck injury. Fall. TECHNIQUE: Computed tomography (CT) of the cervical spine was performed without intravenous contrast. Automated exposure control and iterative reconstruction technique were employed. The dose-length pro duct was 389.17 mGy-cm. COMPARISON: None FINDINGS: There is mild emphysema. There are small bilateral mastoid effusions. There is kyphosis of cervical spine. There is 9 degrees dextrocurvature of cervicothoracic spine. Vertebral body heights a re normal. There is 2 mm retrolisthesis of C6 on C7. There is mildly decreased disc height at C2-C3 a nd C3-C4, severely decreased disc height at C4-C5, moderately decreased disc height at C5-C6, and sev erely decreased disc height at C6-C7 and C7-T1. At C1-C2, there is severe osteoarthritis of the anter ior atlantoaxial joint and right facet joint. The following disc levels are specifically discussed: C2-C3: There is mild right and moderate left uncovertebral joint osteoarthritis. There is severe bila teral facet joint osteoarthritis. There is mild bilateral neural foraminal stenosis. There is no cent ral canal stenosis. C3-C4: There is moderate and severe left uncovertebral joint osteoarthritis. There is severe bilatera l facet joint osteoarthritis. There is mild bilateral neural foraminal stenosis. There is mild centra l canal stenosis. C4-C5: There is severe bilateral uncovertebral joint osteoarthritis. There is severe right and modera te left facet joint osteoarthritis. There is mild bilateral neural foraminal stenosis. There is mild central canal stenosis. C5-C6: There is severe right and moderate left uncovertebral joint osteoarthritis. There is moderate right and severe left facet joint osteoarthritis. There is mild bilateral neural foraminal stenosis. There is mild central canal stenosis. C6-C7: There is severe bilateral uncovertebral joint osteoarthritis. There is mild right and severe l eft facet joint osteoarthritis. There is mild bilateral neural foraminal stenosis. There is mild cent ral canal stenosis. C7-T1: There is severe bilateral uncovertebral joint osteoarthritis. There is severe bilateral facet joint osteoarthritis. There is mild bilateral neural foraminal stenosis. There is mild central canal stenosis. IMPRESSION: 1. No fracture. 2. Severe cervical spondylosis. Reviewed, dictated and finalized at location A.
--- NOTE | ~2024-05-04 | CT_ITS ---
EXAMINATION: CT brain wo con DATE: 05/04/2024 16:16 INDICATION: Fall TECHNIQUE: Computed tomography (CT) of the head was performed without intravenous contrast. Sagittal and coronal reconstructions were performed. The mA was adjusted according to patient size. Iterative reconstruction technique was employed. The dose-length product was 756.67 mGy-cm. COMPARISON: 11/25/2023 FINDINGS: No fracture. Chronic small region of encephalomalacia in the anterior left temporal lobe. No acute in tracranial hemorrhage, acute infarction or abnormal extra axial fluid collection. There is mild scatt ered white matter hypoattenuation consistent with chronic small vessel ischemic disease. Symmetric pr ominence of the sulci and ventricles consistent with moderate age-appropriate diffuse cerebral volume loss. No mass/mass effect. Changes of bilateral intraocular lens replacement. Likely valve for glauc sami treatment at the periphery of the anterolateral right lobe. There is prominent mucosal thickening throughout the paranasal sinuses. There is increased central density and peripheral sclerotic harman at the the right sphenoid, bilateral frontal and maxillary sinuses and with additional erosion of the osseous septa the bilateral sphenoid sinuses consistent with chronic sinusitis. IMPRESSION: 1. No fracture or acute intracranial process. 2. Chronic small region of encephalomalacia at the anterior left temporal lobe which could be due to infarct or trauma. 3. Age-related changes including moderate diffuse on loss and mild scattered white matter hypoattenua tion consistent with chronic small vessel ischemic disease. 4. Chronic pansinusitis. Reviewed, dictated and finalized at location A. IMPRESSION: 1. No fracture or acute intracranial process. 2. Chronic small region of encephalomalacia at the anterior left temporal lobe which could be due to infarct or trauma. 3. Age-related changes including moderate diffuse on loss and mild scattered wh ite matter hypoattenuation consistent with chronic small vessel ischemic diseas e. 4. Chronic pansinusitis.
[2024-05-04 15:45] VITALS: BP 101/73; PULSE 68; RESP 16; TEMP 36.5; O2SAT 97
[2024-05-04 18:53] VITALS: BP 121/75; PULSE 59; RESP 20; TEMP 36.4; O2SAT 99
[2024-05-04 18:55] VITALS: PULSE 59
--- NOTE | 2024-05-04 19:02 | ED.AMS ---
HPI - Altered Mental Status General Chief Complaint: Altered Mental Status Stated Complaint: altered after a fall Time Seen by Provider: 05/04/24 18:58 History of Present Illness HPI narrative: 78-year-old male presenting to the emergency department for evaluation after having a potential ground level fall. Patient does have baseline dementia and is being cared for at home. Family states that his baseline dementia has been worsening and patient has been prone to wandering off over the last few days. Family is concerned they may have had a head injury secondary to his walk about. family does not want to pursue an infectious workup at this time. Family states they do have resources to help care for him. Related Data Home Medications Medication Instructions Recorded Confirmed rivastigmine 4.6 mg/24 hour 4.6 mg transdermal DAILY 12/12/21 01/10/24 transdermal patch quetiapine 25 mg tablet 25 mg PO BID 12/16/22 01/10/24 memantine 10 mg tablet 10 mg PO BID 11/03/23 01/10/24 Allergies Allergy/AdvReac Type Severity Reaction Status Date / Time No Known Allergies Allergy Verified 05/04/24 19:02 Review of Systems Review of Systems: All systems reviewed & are unremarkable except as noted in HPI and below PMFSH Past Medical History Medical History Adenomatous colon polyp Dementia Hyperglycemia Unspecified asthma, uncomplicated Weight loss Family History Family History Mother Patient's mother is in good health Sibling Cerebrovascular accident, Onset Age: 71 Patient's brother is , Onset Age: 71 Father Patient's father is , Onset Age: 51 Social History Social History Years smoked: 20 Smoking status: Never smoker Tobacco type: cigarettes Second hand tobacco smoke exposure: No Alcohol intake: never Substance use: never Substance use type: does not use Lack of Transportation: No Lack of Food: Never True Current Housing: I Have Housing Concerned About Future Housing: No Difficulty Paying Gas/Electric Bills: No Difficulty Paying for Meds: No Currently Unemployed: No Education: High School Diploma/GED Difficulty w/ Childcare or Family Care: No Living arrangements: with family Spiritual care concerns: No Exam Narrative: APPEARANCE: Well appearing, no pain, no distress, well-nourished. HEAD: normocephalic, Abrasion to right forhead. EYES: PERRLA/EOMI, conjunctivae clear. NOSE: Normal no drainage EARS:TMS clear with good light reflex. THROAT: Pharynx clear, no exudate. NECK: Supple. No adenopathy, no masses. RESPIRATORY: Airway patent, respirations nonlabored. Clear to auscultation bilaterally, no rales, rhonchi, wheezing. CARDIOVASCULAR: Regular rate and rhythm without murmurs rubs or gallops. ABDOMINAL: Soft, nontender, nondistended, normal bowel sounds MUSCULOSKELETAL: Moves all extremities. Strength/ROM intact, No edema, No calf tenderness. NEURO: Alert. Cranial nerves II through XII intact. Good gait. Good coordination SKIN: Warm, dry. Normal Color PSYCHIATRIC: Normal affect/mood. Course Course Emergency Course: patient was updated on the results of the workup and they are comfortable with plan for discharge home. Vital Signs Vital signs: Vital Signs Temperature 97.7 F 05/04/24 15:45 Pulse Rate 68 05/04/24 15:45 Respiratory Rate 16 05/04/24 15:45 Blood Pressure 101/73 05/04/24 15:45 Pulse Oximetry 97 05/04/24 15:45 Temperature 97.6 F 05/04/24 18:53 Pulse Rate 59 L 05/04/24 18:55 Respiratory Rate 20 05/04/24 18:53 Blood Pressure 121/75 05/04/24 18:53 Pulse Oximetry 99 05/04/24 18:53 MDM - Altered Mental Status MDM Narrative Medical decision making narrative: 78-year-old male presents to the emerg
== END 2024-05-04 19:25 | disposition home or self-care (01) ==
PROVIDERS: Emergency Provider Emergency Medicine
DX: S09.90XA Unspecified injury of head, initial encounter (principal); F03.90 Unspecified dementia, unspecified severity, without behavioral disturbance, psychotic disturbance, mood disturbance, and anxiety; W19.XXXA Unspecified fall, initial encounter; Z79.51 Long term (current) use of inhaled steroids
CPT/HCPCS: 70450; 71101; 72125; 99284

== ENCOUNTER 2024-05-15 13:14 | Emergency (ER) | payer MEDICARE, SELFPAY ==
--- NOTE | ~2024-05-15 | CT_ITS ---
CT brain wo con Ordering provider: Chato Acosta MD History: 78 years Male with . fall . Comparison: May 04, 2024 Technique: CT of the head without contrast. Radiation reduction technique utilized.The dose-length product was 605.33 mGy-cm. FINDINGS: BRAIN PARENCHYMA AND CSF SPACES: Moderate leukoaraiosis and diffuse cortical atrophy. Moderate athero matous disease. No midline shift, mass effect or hemorrhage. The brain parenchyma and CSF spaces are otherwise normal. VISUALIZED PARANASAL SINUSES: Pansinusitis with postoperative changes and hyperdense material which i s suggestive of fungal infection. No change from previous examination. Thickening of the wall of the sinuses suggestive of chronic sinusitis. MASTOIDS: Well aerated. BONES: The bones appear intact. SOFT TISSUES: Visualized nasopharynx is normal. Superficial soft tissues are normal. IMPRESSION: No acute intracranial findings. Reviewed, dictated and finalized at location A.
--- NOTE | ~2024-05-15 | CT_ITS ---
EXAMINATION: CT cervical spine wo con DATE: 05/15/2024 16:32 INDICATION: Fall. Neck injury. TECHNIQUE: Computed tomography (CT) of the cervical spine was performed without intravenous contrast. Automated exposure control and iterative reconstruction technique were employed. The dose-length pro duct was 386.32 mGy-cm. COMPARISON: CT cervical spine 05/04/2024 FINDINGS: There is mild emphysema. There are bilateral mastoid effusions. There is 13 degrees dextros coliosis of cervicothoracic spine. There is kyphosis of cervical spine. There is mild chronic anterio r wedging of C6, C7, and T1. There is 2 mm retrolisthesis of C6 on C7. There is mildly decreased disc height at C2-C3 and C3-C4, severely decreased disc height at C4-C5, moderately decreased disc height at C5-C6, and severely decreased disc height at C6-C7 and C7-T1. At C1-C2, there is severe osteoarth ritis of the anterior atlantoaxial joint and right facet joint. The following disc levels are specifi verna discussed: C2-C3: There is mild right and moderate left uncovertebral joint osteoarthritis. There is severe bila teral facet joint osteoarthritis. There is mild bilateral neural foraminal stenosis. There is no cent ral canal stenosis. C3-C4: There is moderate and severe left uncovertebral joint osteoarthritis. There is severe bilatera l facet joint osteoarthritis. There is mild bilateral neural foraminal stenosis. There is mild centra l canal stenosis. C4-C5: There is severe bilateral uncovertebral joint osteoarthritis. There is severe right and modera te left facet joint osteoarthritis. There is mild bilateral neural foraminal stenosis. There is mild central canal stenosis. C5-C6: There is severe right and moderate left uncovertebral joint osteoarthritis. There is moderate right and severe left facet joint osteoarthritis. There is mild bilateral neural foraminal stenosis. There is mild central canal stenosis. C6-C7: There is severe bilateral uncovertebral joint osteoarthritis. There is mild right and severe l eft facet joint osteoarthritis. There is mild bilateral neural foraminal stenosis. There is mild cent ral canal stenosis. C7-T1: There is severe bilateral uncovertebral joint osteoarthritis. There is severe bilateral facet joint osteoarthritis. There is mild bilateral neural foraminal stenosis. There is mild central canal stenosis. IMPRESSION: 1. No fracture. 2. Severe cervical spondylosis. Reviewed, dictated and finalized at location A.
[2024-05-15 13:16] VITALS: BP 98/62; PULSE 67; RESP 16; TEMP 36.6; O2SAT 95
[2024-05-15 15:22] VITALS: BP 111/82; PULSE 59; PULSE 61; RESP 14; RESP 15; O2SAT 100; O2SAT 97
--- NOTE | 2024-05-15 15:32 | ECG_ITS ---
Test Date: 2024-05-15 15:39:40 Measurements Intervals [place] Rate: 57 P: 50 AL: 177 QRS: -59 QRSD: 148 T: 34 QT: 425 QTc: 416 Interpretive Statements SINUS BRADYCARDIA RIGHT BUNDLE BRANCH BLOCK LEFT ANTERIOR FASCICULAR BLOCK BASELINE ARTIFACT- I, II, AVR, AVL, AVF, V2 ABNORMAL ECG Electronically Signed On 05-15-2024 20:02:25 CDT by Reyes Beard D.O.
--- NOTE | 2024-05-15 15:37 | ED.FALL ---
HPI - Fall General Chief Complaint: Fall Stated Complaint: fall Time Seen by Provider: 05/15/24 15:20 History of Present Illness HPI Narrative: 78-year-old presented to the emergency department for evaluation after having a ground level fall. Family suspects that he fell from the 12 this morning. Patient does have advanced dementia at baseline. Patient is currently at his normal baseline. After the ground level fall they report they were unable to get him off the ground. Upon arrival to the emergency department patient denies any complaints pain or injury. Patient does have a small laceration on the forehead that did not need suture repair. Related Data Home Medications Medication Instructions Recorded Confirmed rivastigmine 4.6 mg/24 hour 4.6 mg transdermal DAILY 12/12/21 01/10/24 transdermal patch quetiapine 25 mg tablet 25 mg PO BID 12/16/22 01/10/24 memantine 10 mg tablet 10 mg PO BID 11/03/23 01/10/24 Allergies Allergy/AdvReac Type Severity Reaction Status Date / Time No Known Allergies Allergy Verified 05/04/24 19:02 Review of Systems Review of Systems: All systems reviewed & are unremarkable except as noted in HPI and below PMFSH Past Medical History Medical History Adenomatous colon polyp Dementia Hyperglycemia Unspecified asthma, uncomplicated Weight loss Family History Family History Mother Patient's mother is in good health Sibling Cerebrovascular accident, Onset Age: 71 Patient's brother is , Onset Age: 71 Father Patient's father is , Onset Age: 51 Social History Social History Years smoked: 20 Smoking status: Never smoker Tobacco type: cigarettes Second hand tobacco smoke exposure: No Alcohol intake: never Substance use: never Substance use type: does not use Lack of Transportation: No Lack of Food: Never True Current Housing: I Have Housing Concerned About Future Housing: No Difficulty Paying Gas/Electric Bills: No Difficulty Paying for Meds: No Currently Unemployed: No Education: High School Diploma/GED Difficulty w/ Childcare or Family Care: No Living arrangements: with family Spiritual care concerns: No Exam Narrative: APPEARANCE: Well appearing, no pain, no distress, well-nourished. HEAD: normocephalic, atraumatic. EYES: PERRLA/EOMI, conjunctivae clear. NOSE: Normal no drainage EARS:TMS clear with good light reflex. THROAT: Pharynx clear, no exudate. NECK: Supple. No adenopathy, no masses. RESPIRATORY: Airway patent, respirations nonlabored. Clear to auscultation bilaterally, no rales, rhonchi, wheezing. CARDIOVASCULAR: Regular rate and rhythm without murmurs rubs or gallops. ABDOMINAL: Soft, nontender, nondistended, normal bowel sounds MUSCULOSKELETAL: Moves all extremities. Strength/ROM intact, No edema, No calf tenderness. NEURO: Alert. Cranial nerves II through XII intact. Good gait. Good coordination SKIN: Superficial laceration to forehead Course Course Emergency Course: Patient was discharged back to home Vital Signs Vital signs: Vital Signs Temperature 98 F 05/15/24 13:16 Pulse Rate 67 05/15/24 13:16 Respiratory Rate 16 05/15/24 13:16 Blood Pressure 98/62 L 05/15/24 13:16 Pulse Oximetry 95 05/15/24 13:16 Temperature 98 F 05/15/24 13:16 Pulse Rate 57 L 05/15/24 17:01 Respiratory Rate 13 05/15/24 17:01 Blood Pressure 117/67 05/15/24 17:01 Pulse Oximetry 99 05/15/24 17:01 MDM - Fall MDM Narrative Medical decision making narrative: 78-year-old male presenting ED for evaluation of worsening dementia and ground level fall. Imaging was negative for acute fracture or dislocation. Patient was afebrile with no leukocytosis and hemoglobin of 15.2. No acute abno
[2024-05-15 15:46] VITALS: BP 109/63; PULSE 58; RESP 14; O2SAT 98
[2024-05-15] MEDS: SODIUM CHLORIDE 0.9% IV 1,000 ML 999 ML IV CONT (15:46)
[2024-05-15 15:58] LABS: Basophils Absolute Auto 0.1 K/mm3 (0.0-0.1); Basophils Percent Auto 0.7 % (0.2-1.2); Eosinophils Absolute Auto 0.9 K/mm3 (0-0.3); Eosinophils Percent Auto 10.8 % (0-4.4); Hematocrit 45.6 % (42.0-52.0); Hemoglobin 15.2 g/dL (14.0-18.0); Immature Granulocyte Absolute 0.02 K/mm3 (0.00-0.031); Immature Granulocyte Percent A 0.2 % (0-0.5); Immature Platelet Fraction Pct 7.3 % (0.9-11.2); Lymphocytes Absolute Auto 1.47 K/mm3 (0.9-3.2); Lymphocytes Percent Auto 17.8 % (18.3-44.2); Mean Corpuscular HGB Conc 33.3 g/dl (32-36); Mean Corpuscular Hemoglobin 31.7 pg (26-34); Mean Corpuscular Volume 95.2 fl (80-100); Mean Platelet Volume 10.5 fl (7.4-10.4); Monocytes Absolute Auto 0.6 K/mm3 (0.1-0.6); Monocytes Percent Auto 6.9 % (2.6-8.5); Neutrophils Absolute Auto 5.2 K/mm3 (1.3-6.7); Neutrophils Percent Auto 63.6 % (45.5-73.1); Platelet Count Result 119 k/mm3 (150-375); Red Blood Count 4.79 M/mm3 (4.6-6.20); Red Cell Distribution Width 13.4 % (11.5-14.5); White Blood Count 8.3 K/mm3 (4.5-10.0)
[2024-05-15 16:09] LABS: INR 1.1; Partial Thromboplastin Time 32.9 Seconds (22.3-36.8); Prothrombin Time 14.6 Seconds (11.1-14.7)
[2024-05-15 16:21] LABS: Alanine Aminotransferase 12 U/L (6-50); Albumin Level 3.9 g/dL (3.5-5.1); Alkaline Phosphatase 97 U/L (38-126); Anion Gap 9 mmol/L (4-12); Aspartate Amino Transferase 21 U/L (17-59); Bilirubin,Total 0.8 mg/dL (0.2-1.3); Blood Urea Nitrogen 20 mg/dL (9-20); Calcium 8.8 mg/dL (8.4-10.2); Carbon Dioxide 27 mmol/L (22-30); Chloride 102 mmol/L (98-107); Estimated Glomerular Filt Rate > 60; Glucose 87 mg/dL (65-110); Sodium 138 mmol/L (137-145)
[2024-05-15 16:24] LABS: Add Urine Microscopic? YES; Appearance Urine Cloudy (Clear); Bacteria Urine None Seen /hpf; Bilirubin Urine Negative (Negative); Blood Urine Negative (Negative); Color Urine Dark Yellow (Yellow); Glucose Urine UA Negative (Negative); Ketones Urine Trace mg/dL (Negative); Leukocyte Esterase Ur Negative LEU/UL (Negative); Mucus Urine Present /lpf; Need Manual Microscopic Reviewed; Nitrate Urine Negative (Negative); Protein Urine Trace mg/dL (Negative); RBC Urine 0-2 /hpf (0-2); Specific Grav Ur 1.033 (1.001-1.035); Squamous Epithelial Cell Urine Occasional /hpf (Few); WBC Urine 0-5 /hpf (0-3); pH Urine 5.5 (5.0-9.0)
[2024-05-15 16:25] LABS: Influenza A QL RT-PCR Negative (Negative); Influenza B QL RT-PCR Negative (Negative); RSV RNA, RT-PCR Negative (Negative); SARS-CoV-2 RNA PCR Negative (Negative)
[2024-05-15 16:53] VITALS: BP 108/70; PULSE 59; RESP 12; O2SAT 99
[2024-05-15 17:01] VITALS: BP 117/67; PULSE 57; RESP 13; O2SAT 99
--- NOTE | 2024-05-15 17:28 | PCCCNOTE ---
1728-Called to the pt's room by the ED staff to discuss placement into facility. Advised the pt would need PT/OT eval would be needed, possibly admission for this evening and the expected cost of being in facility with current benefits listed. Pt's and son decided to take him home. Did notify the provider of the families decision.-jered.
== END 2024-05-15 17:44 | disposition home or self-care (01) ==
PROVIDERS: Emergency Provider Emergency Medicine
DX: S01.81XA Laceration without foreign body of other part of head, initial encounter (principal); F03.90 Unspecified dementia, unspecified severity, without behavioral disturbance, psychotic disturbance, mood disturbance, and anxiety; J45.909 Unspecified asthma, uncomplicated; Z86.010 Personal history of colon polyps; Z79.899 Other long term (current) drug therapy; M47.812 Spondylosis without myelopathy or radiculopathy, cervical region; W18.30XA Fall on same level, unspecified, initial encounter
CPT/HCPCS: 36415; 70450; 72125; 80053; 81001; 85025; 85055; 85610; 85730; 87637; 93005; 96360; 99284; J7030

== ENCOUNTER 2024-07-10 04:53 | Emergency (ER) | payer MEDICARE, SELFPAY ==
[2024-07-10] VITALS (35 sets, daily range): BP systolic 98–184; BP diastolic 60–109; PULSE 68–95; RESP 14–23; TEMP 36.5–36.6; O2SAT 91–98
--- NOTE | ~2024-07-10 | XR_ITS ---
Portable chest x-ray Comparison: 07/08/2023 Clinical History: Altered mental status Findings: No acute consolidation, pleural effusion, or pneumothorax seen. COPD pattern of the lungs noted. Cardiomediastinal silhouette is stable. Bones and soft tissues are unremarkable. Impression: COPD. Clear lungs. Reviewed, dictated and finalized at location . TEACHER Impression: COPD. Clear lungs.
--- NOTE | ~2024-07-10 | CT_ITS ---
Non-contrast CT scan of the Abdomen and Pelvis Clinical indication: Hematuria Technique: 2.5 mm axial scans were obtained through the abdomen and pelvis without intravenous or or al contrast. Dose reduction technique was used on this scan by utilizing automated exposure control a nd iterative reconstruction technique. The dose-length product (DLP) was 413.56 mGy-cm. COMPARISON: 10/26/2023 Findings: Images through the lung bases reveal moderate hiatal hernia. Small pericardial effusion. There is no evidence of renal or ureteral calculi. The kidneys and the ureters are nondilated. The liver, spleen, pancreas, gallbladder, and adrenals appear normal. There are atherosclerotic calci fications of the aorta. . There is no evidence of bowel obstruction. Images through the pelvis were performed. There is no evidence of ascites or lymphadenopathy. Urinary bladder unremarkable. Prostate gland enlarged. There are possible bilateral L5 pars interarticularis defects, with 11 mm anterolisthesis of L5 over S1. There is severe degenerative spondylosis throughout the lumbar spine. Impression: No etiology for hematuria identified. Small pericardial effusion. Moderate hiatal hernia. Severe degenerative changes of the lumbar spine, as detailed above. Reviewed, dictated and finalized at location . CONTROLLER Impression: No etiology for hematuria identified. Small pericardial effusion. Moderate hiatal hernia. Severe degenerative changes of the lumbar spine, as detailed above.
--- NOTE | ~2024-07-10 | CT_ITS ---
CT head without contrast Indication: Altered mental status COMPARISON: 05/15/2024 Technique: Serial scans were obtained through the brain without the administration of contrast. Dose reduction technique was used on this scan by utilizing automated exposure control and iterative recon struction technique. The dose-length product (DLP) was 756.67 mGy-cm. Findings: There is no evidence of intracranial hemorrhage, mass lesion, or acute infarct. The ventri cles and subarachnoid spaces are dilated, consistent with moderate atrophy. Stable chronic encephalom alacia at the anterior left temporal lobe. Low attenuation regions are seen within the periventricula r white matter bilaterally, likely representing changes from chronic microvascular ischemic disease. There is no evidence of edema, mass effect or midline shift. There is extensive mucosal thickening t hroughout the paranasal sinuses, with suggestion of prior sinus surgery. Minimal bilateral mastoid ef fusions noted. Impression: No intracranial hemorrhage, mass, or acute infarct. Stable chronic encephalomalacia at the anterior left temporal lobe. Atrophy and chronic white matter changes, as above. Sinus disease, as above. 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 Stable chronic encephalomalacia at the anterior left temporal lobe. Atrophy and chronic white matter changes, as above. Sinus disease, as above.
--- NOTE | 2024-07-10 05:20 | ED.AMS ---
HPI - Altered Mental Status General Chief Complaint: Altered Mental Status Stated Complaint: aggressive behavior Time Seen by Provider: 07/10/24 04:59 Source: EMS and RN notes reviewed Mode of arrival: EMS Limitations: dementia History of Present Illness HPI narrative: patient sent to the emergency department for altered mental status and aggressive behavior. He has a history of dementia and is alert oriented x1 which is reportedly his baseline. He can state his date of but otherwise speaks nonsensically, occasionally setting understandable words and phrases but other times mumbling and incomprehensible. patient denies any chest pain, abdominal pain, or headache but otherwise is very limited in history, Unable to meaningfully engage in conversation. Related Data Home Medications Medication Instructions Recorded Confirmed rivastigmine 4.6 mg/24 hour 4.6 mg transdermal DAILY 12/12/21 01/10/24 transdermal patch quetiapine 25 mg tablet 25 mg PO BID 12/16/22 01/10/24 memantine 10 mg tablet 10 mg PO BID 11/03/23 01/10/24 Allergies Allergy/AdvReac Type Severity Reaction Status Date / Time No Known Allergies Allergy Verified 06/22/24 11:13 [facility] Past Medical History Medical History (Updated 07/10/24 @ 08:12 by Rosa Morley MD) Adenomatous colon polyp Alzheimer's disease, unspecified BMI 20.0-20.9, adult Hyperglycemia Unspecified asthma, uncomplicated Unspecified dementia, unspecified severity, without behavioral disturbance, psychotic disturbance, mood disturbance, and anxiety Weight loss Surgical History Surgical History (Updated 06/22/24 @ 11:17 by BENNY Bates) H/O shoulder surgery H/O Spinal surgery History of knee surgery History of nasal surgery Family History Family History (Updated 06/22/24 @ 11:19 by BENNY Bates) Mother Heart disease Sibling Cerebrovascular accident, Onset Age: 71 Patient's brother is , Onset Age: 71 Heart disease Father Patient's father is , Onset Age: 51 cancer Heart disease Social History Social History (Updated 07/10/24 @ 06:31 by Rosa Morley MD) 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 Years smoked: 20 Smoking status: Former smoker Tobacco type: cigarettes Second hand tobacco smoke exposure: Yes Alcohol intake: never Substance use: never Substance use type: does not use Do You Feel Safe in your Home?: Yes Lack of Transportation: No Lack of Food: Never True Current Housing: I Have Housing Concerned About Future Housing: No Difficulty Paying Gas/Electric Bills: No Difficulty Paying for Meds: No Currently Unemployed: No Education: High School Diploma/GED Difficulty w/ Childcare or Family Care: No Living arrangements: alf Additional living arrangements comments: [facility] since 01/27/24 Occupation/Education: retired 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 does not appear to be in pain as he does not have a furrowed brow Or grimace. HEAD: Normocephalic, atraumatic. EYES: Non injected, non icteric ENT: Nares clear, no rhinorrhea or epistaxis. NECK: Supple. CHEST: Speaking in full sentences. No respiratory distress. Coarse bilateral breath sounds but without wheezes. HEART: Regular rate and rhythm. . ABDOMEN: Soft, nondistended. EXTREMITIES: Normal range of motion. No lower extremity edema. Moving all extremities x4. SKIN: Warm, dry, no rash. NEURO: No focal deficits. Alert. Good eye contact. unable to provide history. occasionally saying words and phrases (e.g. asking Who are you or Look at that while pointing to things in the room but at times speaking nonsensically. Course Vital Signs Vital signs: Vital Signs Temperature 98 F 07/10/24 04:53 Pulse Rate 93 07/10/24 04:53 Respiratory Rate 15 07/10/24 04:53 Blood Pressure 139/91 H 07/10/24 04:53 Pulse Oximetry 96 07/10/24 04:53 Oxygen Delivery Room Air 07/10/24 04:53 Temperature 98 F 07/10/24 06:52 Pulse Rate 92 07/10/24 06:52 Respiratory Rate 20 07/10/24 06:52 Blood Pressure 184/98 H 07/10/24 06:52 Pulse Oximetry 94 07/10/24 06:52 Oxygen Delivery Room Air 07/10/24 05:02 MDM - Altered Mental Status MDM Narrative Medical decision making narrative: patient presents from alf facility with report of altered mental status/aggressive behavior. He has a history of dementia/ Alzheimer's. In the emergency department he is afebrile with vital signs notable for slightly elevated diastolic blood pressure. We are informed by nursing facility that they had requested that patient be taken to [place] and had even given report to [place] but EMS transported patient here for unclear reasons. At first patient was very calm and polite. While attempting to perform work up however, The patient was demonstrating severe psychomotor agitation and violent behavior requiring medication for behavioral control for both patient and staff safety. Patient was given intramuscular Ativan and Haldol, 2 mg and 5 mg respectively for which he responded by becoming more calm, able to facilitate work up. . hall monitor ordered to be in place. Patient's medication list at the facilities reviewed and it shows that he is on escitalopram, hydroxyzine, memantine, and Seroquel b.i.d. for agitation. He may require an alternative regimen but will defer this to his primary care team. He does have hematuria on his urinalysis. Greater than 100 rbc's so will obtain CT abdomen pelvis given possibility of renal calculus although also considered that it might be secondary to traumatic straight cath. Work up with various findings though none that I suspect to be the culprit of his behavior. patient to be discharged back to his nursing facility. Could consider offering acetaminophen given his degenerative vertebral disease might be causing pain the cannot express. Also could consider offering omeprazole given he has a hiatal hernia as this may also be causing some mild GI distress that he cannot express. However, \this is likely due to progression of his known disease processes. Differential Diagnosis Differential diagnosis: Likely altered mental status, delirium, dementia, hypoglycemia, hyponatremia, subarachnoid hemorrhage and sepsis Lab Data Attestation: I reviewed the patient's lab results. Lab results narrative: Very mild leukocytosis; chronic thrombocytopenia 07/10/24 06:37 07/10/24 06:37 Labs: Lab Results 07/10/24 07/10/24 07/10/24 Range/Units 06:34 06:37 07:16 WBC 11.1 H (4.5-10.0) K/mm3 RBC 4.97 (4.6-6.20) M/mm3 Hgb 15.8 (14.0-18.0) g/dL Hct 48.6 (42.0-52.0) % MCV 97.8 (80-100) fl MCH 31.8 (26-34) pg MCHC 32.5 (32-36) g/dl RDW 13.7 (11.5-14.5) % Plt Count 138 L (150-375) k/mm3 MPV 11.1 H (7.4-10.4) fl Immature Gran % (Auto) 0.3 (0-0.5) % Neut % (Auto) 53.4 (45.5-73.1) % Lymph % (Auto) 24.6 (18.3-44.2) % [place] % (Auto) 7.4 (2.6-8.5) % Eos % (Auto) 13.1 H (0-4.4) % Baso % (Auto) 1.2 (0.2-1.2) % Lymph # (Auto) 2.73 (0.9-3.2) K/mm3 [place] # (Auto) 0.8 H (0.1-0.6) K/mm3 Eos # (Auto) 1.5 H (0-0.3) K/mm3 Baso # (Auto) 0.1 (0.0-0.1) K/mm3 Abs Immat Gran (auto) 0.03 (0.00-0.031) K/mm3 Absolute Neuts (auto) 5.9 (1.3-6.7) K/mm3 Absolute Nucleated RBC 0.000 (0.0-0.012) K/mm3 Nucleated RBC % 0.0 (0.0-0.2) % % Immature Plt Fraction 7.5 (0.9-11.2) % Sodium 141 (137-145) mmol/L Potassium 3.6 (3.4-5.0) mmol/L Chloride 102 (98-107) mmol/L Carbon Dioxide 24 (22-30) mmol/L Anion Gap 15 H (4-12) mmol/L BUN 15 D (9-20) mg/dL Creatinine 0.90 (0.7-1.3) mg/dL Estim Creat Clear Calc Not Reportable Estimated GFR > 60 (59 - ) Glucose 94 (65-110) mg/dL POC Capillary Glucose 99 (65-105) mg/dl Calcium 9.4 (8.4-10.2) mg/dL Total Bilirubin 1.3 (0.2-1.3) mg/dL AST 26 (17-59) U/L ALT 17 (6-50) U/L Alkaline Phosphatase 103 (38-126) U/L Total Protein 8.0 (6.3-8.2) g/dL Albumin 4.5 (3.5-5.1) g/dL TSH 3.470 (0.465-4.680) uIU/mL Urine Color Dark yellow (Yellow) Urine Appearance Cloudy H (Clear) Urine pH 5.5 (5.0-9.0) Ur Specific [place]ell 1.026 (1.001-1.035) Urine Protein Trace (Negative) mg/dL Urine Glucose (UA) Negative (Negative) mg/dL Urine Ketones 1+ H (Negative) mg/dL Ur Blood (Man) 3+ H (Negative) Urine Nitrate Negative (Negative) Urine Bilirubin 1+ H (Negative) Urine Urobilinogen 1.0 (<2.0) mg/dL Add Ur Microanalysis Reviewed Leukocyte Esterase Rfl Negative (Negative) KRISTEN/UL Urine RBC >100 H (0-2) /hpf Urine WBC 0-5 (0-3) /hpf Ur Squamous Epith Cells Occasional (Few) /hpf Urine Bacteria None seen /hpf Urine Casts 6-10 Hyaline Casts Present (None) /lpf Urine Mucus Present /lpf SARS-CoV-2 RNA (RT-PCR) Positive A (Negative) Imaging Data Radiologist's impression: Impressions Head CT 07/10/24 06:14 Impression: No intracranial hemorrhage, mass, or acute infarct. Stable chronic encephalomalacia at the anterior left temporal lobe. Atrophy and chronic white matter changes, as above. Sinus disease, as above. Chest X-Ray 07/10/24 06:32 Impression: COPD. Clear lungs. ECG Data EKG #1: Attestation: I personally reviewed and interpreted this ECG as follows: ECG completion date: 07/10/24 ECG completion time: 06:03 Interpretation: Normal sinus rhythm at a rate of 78 beats per minute. VT interval 167. QRS 135. QT/QTC 410/443. No T-wave inversions. RBBB given QRS greater [id number]; RSR' M-shaped pattern in V1&V3; wide, slurred S wave in lateral leads (I, aVL, V5-6). Left anterior fascicular block with rS complexes in leads II, III, aVF (small R waves, deep S waves), qR complexes in lead I , avL (small Q waves and tall R waves) and left axis deviation with Leads II, III and aVF negative and leads I and aVL positive. Discharge Plan Discharge Clinical Impression: Behavior disturbance, LAFB (left anterior fascicular block), Encephalomalacia on imaging study, COPD (chronic obstructive pulmonary disease), Thrombocytopenia, COVID-19, Hematuria, Pericardial effusion, Hernia, hiatal, Degenerative joint disease (DJD) of lumbar spine Patient Disposition: NH Group Home/Asst Living Condition: Stable Instructions: Antibiotic Form, Alzheimer Disease (DC), Dementia (ED) Additional Instructions: Patient's behavioral outbursts are likely due to his underlying disease process of Alzheimer's/dementia. This is to be expected and changing patient's psychiatric medications should be considered. The hematuria that was seen on urinalysis was likely due to the trauma of straight cath but could be followed up with a repeat urinalysis in the future. He had evidence of a hiatal hernia and a proton pump inhibitor or H2 myah could be considered to help if he is perhaps having symptoms from that he is not able to express. Similarly, he has degenerative disc disease and may have some pain from that so should be offered acetaminophen p.r.n.. Prescriptions: New acetaminophen 650 mg tablet extended release 650 mg PO Q8H PRN (Reason: pain) Qty: 20 0RF omeprazole 20 mg tablet,delayed release (DR/EC) 20 mg PO DAILY Qty: 20 0RF No Action escitalopram oxalate 10 mg tablet 10 mg PO DAILY Qty: 90 0RF rivastigmine 4.6 mg/24 hour patch 24 hour 4.6 mg transdermal DAILY quetiapine 25 mg tablet 25 mg PO BID memantine 10 mg Tablet 10 mg PO BID albuterol sulfate 90 mcg/actuation HFA aerosol inhaler 2 puff INHALATION QID PRN (Reason: shortness of breath or wheezing) Qty: 8 3RF fluticasone propion-salmeterol [Wixela Inhub] 500-50 mcg/dose blister with device 1 inh INHALATION Q12H Qty: 60 3RF Follow-up/Referrals: Maria Isabel,Valdez L., DO [Physician] - (primary physician per alf documentation) UNKNOWN,DOCTOR [Primary Care Provider] - Stand Alone Forms: Custodial Discharge Time of Disposition: 08:14
--- NOTE | 2024-07-10 05:33 | ECG_ITS ---
Test Date: 2024-07-10 06:03:03 Measurements Intervals [place]le Rate: 78 P: 85 AR: 167 QRS: -66 QRSD: 135 T: 55 QT: 410 QTc: 467 Interpretive Statements SINUS RHYTHM RIGHT BUNDLE BRANCH BLOCK LEFT ANTERIOR FASCICULAR BLOCK BASELINE ARTIFACT- I, II, III ABNORMAL ECG Compared to ECG 05/15/2024 15:39:40 HEART RATE HAS INCREASED Electronically Signed On 07-10-2024 06:52:56 REFRIGERATION LEAD by Reyes Beard D.O.
[2024-07-10] MEDS: HALOPERIDOL LACTATE 5 MG/ML VIAL IM (06:36)
[2024-07-10] MEDS: LORazepam INJ (*CRX) 2 MG/ML VIAL IM (06:36)
[2024-07-10 06:39] LABS: Glucose Point of Care 99 mg/dl (65-105)
--- NOTE | 2024-07-10 06:42 | PC.NURSE ---
Attempted to draw blood for labs and obtain a POC blood glucose. Patient pulled away and became very upset when a butterfly needle was inserted in his right wrist. Patient states If you kill me, I'm going to kill you. Patient is confused and is at baseline of A&Ox1. Patient was asked if he needed to urinate for a sample. Patient stated no . Nursing staff started process of using a straight catheter on the patient for urine sample. Patient began to violently thrash and slap and kick staff. Per EDP Dr. Morley give 2mg Ativan and 5mg Haldol both IM. At 0636 patient was given IM injection into right thigh containing medication. Urine sample, blood for labs, and POC blood glucose obtained.
[2024-07-10 06:48] LABS: Basophils Absolute Auto 0.1 K/mm3 (0.0-0.1); Basophils Percent Auto 1.2 % (0.2-1.2); Eosinophils Absolute Auto 1.5 K/mm3 (0-0.3); Eosinophils Percent Auto 13.1 % (0-4.4); Hematocrit 48.6 % (42.0-52.0); Hemoglobin 15.8 g/dL (14.0-18.0); Immature Granulocyte Absolute 0.03 K/mm3 (0.00-0.031); Immature Granulocyte Percent A 0.3 % (0-0.5); Immature Platelet Fraction Pct 7.5 % (0.9-11.2); Lymphocytes Absolute Auto 2.73 K/mm3 (0.9-3.2); Lymphocytes Percent Auto 24.6 % (18.3-44.2); Mean Corpuscular HGB Conc 32.5 g/dl (32-36); Mean Corpuscular Hemoglobin 31.8 pg (26-34); Mean Corpuscular Volume 97.8 fl (80-100); Mean Platelet Volume 11.1 fl (7.4-10.4); Monocytes Absolute Auto 0.8 K/mm3 (0.1-0.6); Monocytes Percent Auto 7.4 % (2.6-8.5); Neutrophils Absolute Auto 5.9 K/mm3 (1.3-6.7); Neutrophils Percent Auto 53.4 % (45.5-73.1); Platelet Count Result 138 k/mm3 (150-375); Red Blood Count 4.97 M/mm3 (4.6-6.20); Red Cell Distribution Width 13.7 % (11.5-14.5); White Blood Count 11.1 K/mm3 (4.5-10.0)
[2024-07-10 06:56] LABS: Alanine Aminotransferase 17 U/L (6-50); Albumin Level 4.5 g/dL (3.5-5.1); Alkaline Phosphatase 103 U/L (38-126); Anion Gap 15 mmol/L (4-12); Aspartate Amino Transferase 26 U/L (17-59); Bilirubin,Total 1.3 mg/dL (0.2-1.3); Blood Urea Nitrogen 15 mg/dL (9-20); Calcium 9.4 mg/dL (8.4-10.2); Carbon Dioxide 24 mmol/L (22-30); Chloride 102 mmol/L (98-107); Estimated Glomerular Filt Rate > 60; Glucose 94 mg/dL (65-110); Potassium 3.6 mmol/L (3.4-5.0); Sodium 141 mmol/L (137-145)
[2024-07-10 07:17] LABS: Add Urine Microscopic? YES; Appearance Urine Cloudy (Clear); Bacteria Urine None Seen /hpf; Bilirubin Urine 1+ (Negative); Blood Urine 3+ (Negative); Color Urine Dark Yellow (Yellow); Glucose Urine UA Negative (Negative); Hyaline Casts Urine Present /lpf; Ketones Urine 1+ mg/dL (Negative); Leukocyte Esterase Ur Negative LEU/UL (Negative); Mucus Urine Present /lpf; Need Manual Microscopic Reviewed; Nitrate Urine Negative (Negative); Protein Urine Trace mg/dL (Negative); RBC Urine >100 /hpf (0-2); Specific Grav Ur 1.026 (1.001-1.035); Squamous Epithelial Cell Urine Occasional /hpf (Few); WBC Urine 0-5 /hpf (0-3); pH Urine 5.5 (5.0-9.0)
[2024-07-10 07:56] LABS: SARS-CoV-2 RNA PCR Positive (Negative)
== END 2024-07-10 12:16 ==
PROVIDERS: Emergency Provider Student in an Organized Health Care Education/Training Program
DX: G30.9 Alzheimer's disease, unspecified (principal); F02.811 Dementia in other diseases classified elsewhere, unspecified severity, with agitation; U07.1 COVID-19; J44.9 Chronic obstructive pulmonary disease, unspecified; J90 Pleural effusion, not elsewhere classified; I45.2 Bifascicular block; K44.9 Diaphragmatic hernia without obstruction or gangrene; D69.6 Thrombocytopenia, unspecified; G93.89 Other specified disorders of brain; R31.9 Hematuria, unspecified; M47.816 Spondylosis without myelopathy or radiculopathy, lumbar region; Z86.0101 Personal history of adenomatous and serrated colon polyps; Z87.891 Personal history of nicotine dependence; Z79.899 Other long term (current) drug therapy
CPT/HCPCS: 36415; 70450; 71045; 74176; 80053; 81001; 82948; 84443; 85025; 85055; 87635; 93005; 96372; 99284; J1630; J2060

== ENCOUNTER 2024-08-02 00:21 | Emergency (ER) | payer MEDICARE, SELFPAY ==
[2024-08-02] VITALS (13 sets, daily range): BP systolic 121–144; BP diastolic 75–93; PULSE 72–93; RESP 14–22; TEMP 36.4–37; O2SAT 96–100
--- NOTE | ~2024-08-02 | XR_ITS ---
Portable chest x-ray Comparison: 07/10/2024 Clinical History: Shortness of breath Findings: Lungs are clear, without focal consolidation or pleural effusion. Possible COPD. Cardiome diastinal silhouette is stable. Bones and soft tissues are unremarkable, aside from left shoulder art hroplasty. Impression: Clear lungs. Possible COPD. Reviewed, dictated and finalized at location . [employer] Impression: Clear lungs. Possible COPD.
[2024-08-02] MEDS: IPRATROPIUM 0.5 MG/ALBUTEROL SULFATE 2.5 MG AMPUL.NEB 3 ML INHALATION (00:52)
[2024-08-02 01:08] LABS: Basophils Absolute Auto 0.1 K/mm3 (0.0-0.1); Basophils Percent Auto 1.1 % (0.2-1.2); Hematocrit 44.7 % (42.0-52.0); Hemoglobin 14.5 g/dL (14.0-18.0); Immature Granulocyte Absolute 0.04 K/mm3 (0.00-0.031); Immature Granulocyte Percent A 0.4 % (0-0.5); Lymphocytes Percent Auto 19.7 % (18.3-44.2); Mean Corpuscular HGB Conc 32.4 g/dl (32-36); Mean Corpuscular Hemoglobin 30.5 pg (26-34); Mean Corpuscular Volume 93.9 fl (80-100); Mean Platelet Volume 10.8 fl (7.4-10.4); Monocytes Absolute Auto 0.6 K/mm3 (0.1-0.6); Monocytes Percent Auto 6.8 % (2.6-8.5); Neutrophils Absolute Auto 5.6 K/mm3 (1.3-6.7); Platelet Count Result 155 k/mm3 (150-375); Red Blood Count 4.76 M/mm3 (4.6-6.20); Red Cell Distribution Width 13.1 % (11.5-14.5); White Blood Count 9.2 K/mm3 (4.5-10.0)
[2024-08-02 01:11] LABS: Lactic Acid Reflex 1.1 mmol/L (0.7-2.0); Magnesium 2.2 mg/dL (1.6-2.3)
[2024-08-02 01:13] LABS: Alanine Aminotransferase 15 U/L (6-50); Alkaline Phosphatase 98 U/L (38-126); Anion Gap 6 mmol/L (4-12); Aspartate Amino Transferase 23 U/L (17-59); Bilirubin,Total 0.7 mg/dL (0.2-1.3); Blood Urea Nitrogen 16 mg/dL (9-20); Carbon Dioxide 29 mmol/L (22-30); Chloride 104 mmol/L (98-107); Estimated Glomerular Filt Rate > 60; Glucose 104 mg/dL (65-110); Sodium 139 mmol/L (137-145)
[2024-08-02 01:18] LABS: INR 1.1; Prothrombin Time 14.4 Seconds (11.1-14.7)
[2024-08-02 01:19] LABS: Partial Thromboplastin Time 37.1 Seconds (22.3-36.8)
[2024-08-02 01:22] LABS: NT Pro B Type Natriuretic Pept 307 pg/mL (19.9-100)
[2024-08-02 01:24] LABS: Troponin I < 0.012 ng/mL (0.000-0.034)
[2024-08-02 01:33] LABS: Add Urine Microscopic? YES; Appearance Urine Clear (Clear); Bacteria Urine None Seen /hpf; Bilirubin Urine Negative (Negative); Blood Urine 3+ (Negative); Color Urine Yellow (Yellow); Glucose Urine UA Negative (Negative); Ketones Urine Trace mg/dL (Negative); Leukocyte Esterase Ur Negative LEU/UL (Negative); Nitrate Urine Negative (Negative); Non Pathogenic Casts 0-2; Protein Urine Negative (Negative); RBC Urine >100 /hpf (0-2); Specific Grav Ur 1.029 (1.001-1.035); Squamous Epithelial Cell Urine None Seen /hpf (Few); WBC Urine 0-5 /hpf (0-3); pH Urine 5.5 (5.0-9.0)
--- NOTE | 2024-08-02 01:53 | ED_ITS ---
HPI - General Adult General Chief complaint: Shortness of Breath/Dyspnea Stated complaint: DIFFICULTY IN BREATHING; HOSPICE PT Time Seen by Provider: 08/02/24 00:24 History of Present Illness HPI narrative: Patient is a 78-year-old gentleman who presents emergency department with chief complaint of shortness of breath. The patient has history of dementia also history of hospice care the the patient recently was diagnosed with COVID about 2 weeks ago also has history of asthma. Patient was having increasing shortness of breath and was found to be 88% on room air when EMS arrived. The patient is a DNR do not intubate and in hospice care. The patient was given Solu-Medrol by EMS and a DuoNeb and by the time he arrived to the emergency department was feeling much better. Related Data Home Medications Medication Instructions Recorded Confirmed rivastigmine 4.6 mg/24 hour 4.6 mg transdermal DAILY 12/12/21 01/10/24 transdermal patch quetiapine 25 mg tablet 25 mg PO BID 12/16/22 01/10/24 memantine 10 mg tablet 10 mg PO BID 11/03/23 01/10/24 Allergies Allergy/AdvReac Type Severity Reaction Status Date / Time No Known Allergies Allergy Verified 07/11/24 09:20 Review of Systems Review of Systems: A 10 system review of systems was completed on the patient and is negative exce pt for what is stated in the HPI. Nursing and ancillary documentation was reviewed. [facility] Past Medical History Medical History Abscess Adenomatous colon polyp Alzheimer's disease, unspecified BMI 20.0-20.9, adult Cough Dietary counseling and surveillance (01/10/16) Encounter for screening for malignant neoplasm of prostate Gastro-esophageal reflux disease without esophagitis History of colon polyps Hyperglycemia Mild persistent asthma with exacerbation Nocturia Other fatigue Tachycardia Unspecified asthma, uncomplicated Unspecified dementia, unspecified severity, without behavioral disturbance, psychotic disturbance, mood disturbance, and anxiety Weight loss Weight loss Wheezing Surgical History Surgical History H/O shoulder surgery H/O Spinal surgery History of knee surgery History of nasal surgery Family History Family History Mother Heart disease Sibling Cerebrovascular accident, Onset Age: 71 Patient's brother is , Onset Age: 71 Heart disease Father Patient's father is , Onset Age: 51 cancer Heart disease Social History Social History 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 Years smoked: 20 Smoking status: Never smoker Tobacco type: cigarettes Second hand tobacco smoke exposure: Yes Alcohol intake: never Substance use: never Substance use type: does not use Do You Feel Safe in your Home?: Yes Lack of Transportation: No Lack of Food: Never True Current Housing: I Have Housing Concerned About Future Housing: No Difficulty Paying Gas/Electric Bills: No Difficulty Paying for Meds: No Currently Unemployed: No Education: High School Diploma/GED Difficulty w/ Childcare or Family Care: No Living arrangements: [facility] Additional living arrangements comments: [facility] since 01/27/24 Occupation/Education: retired 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 HEAD: Normocephalic, atraumatic. EYES: PERRLA and EOMI. ENT: Nares clear, no rhinorrhea or epistaxis. Mucous membranes moist. NECK: Supple. CHEST: Clear to auscultation. No respiratory distress. HEART: Regular rate and rhythm. No murmur heard. Normal peripheral pulses. ABDOMEN: Soft, nontender, nondistended, normal active bowel sounds. EXTREMITIES: Normal range of motion. No edema. SKIN: Warm, dry, no rash. NEURO: No focal deficits. Alert and pleasantly confused. PSYCH: Normal mood and affect. Course Vital Signs Vital signs: Vital Signs Temperature 36.6 C 08/02/24 00:30 Pulse Rate 80 08/02/24 00:30 Respiratory Rate 15 08/02/24 00:30 Blood Pressure 144/93 H 08/02/24 00:30 Pulse Oximetry 100 08/02/24 00:30 Oxygen Delivery Nasal Cannula 08/02/24 00:30 Oxygen Flow Rate 2 08/02/24 00:30 Fraction of Inspired Oxygen 98 08/02/24 00:30 Temperature 37.0 C 08/02/24 01:47 Pulse Rate 72 08/02/24 01:47 Respiratory Rate 14 08/02/24 01:47 Blood Pressure 130/78 08/02/24 01:47 Pulse Oximetry 97 08/02/24 01:47 Oxygen Delivery Room Air 08/02/24 01:28 Oxygen Flow Rate 2 08/02/24 00:30 Fraction of Inspired Oxygen 98 08/02/24 01:28 Medical Decision Making MDM Narrative Medical decision making narrative: Patient currently in hospice care do not intubate do not resuscitate. Patient is currently back to baseline he point not require not hot. Chest x-ray showed no focal infiltrate CBC was within normal limits urinalysis showed no evidence UTI troponin was negative BNP was 307 Patient will be placed on doxycycline and also will be put on a course of steroids the patient will be discharged back to the nursing facility. Vital Signs Vital Signs: Vital Signs Temperature 36.6 C 08/02/24 00:30 Pulse Rate 80 08/02/24 00:30 Respiratory Rate 15 08/02/24 00:30 Blood Pressure 144/93 H 08/02/24 00:30 Pulse Oximetry 100 08/02/24 00:30 Oxygen Delivery Nasal Cannula 08/02/24 00:30 Oxygen Flow Rate 2 08/02/24 00:30 Fraction of Inspired Oxygen 98 08/02/24 00:30 Temperature 37.0 C 08/02/24 01:47 Pulse Rate 72 08/02/24 01:47 Respiratory Rate 14 08/02/24 01:47 Blood Pressure 130/78 08/02/24 01:47 Pulse Oximetry 97 08/02/24 01:47 Oxygen Delivery Room Air 08/02/24 01:28 Oxygen Flow Rate 2 08/02/24 00:30 Fraction of Inspired Oxygen 98 08/02/24 01:28 Lab Data 08/02/24 00:56 08/02/24 00:56 Labs: Lab Results 08/02/24 08/02/24 Range/Units 00:56 01:10 WBC 9.2 (4.5-10.0) K/mm3 RBC 4.76 (4.6-6.20) M/mm3 Hgb 14.5 (14.0-18.0) g/dL Hct 44.7 (42.0-52.0) % MCV 93.9 (80-100) fl MCH 30.5 (26-34) pg MCHC 32.4 (32-36) g/dl RDW 13.1 (11.5-14.5) % Plt Count 155 (150-375) k/mm3 MPV 10.8 H (7.4-10.4) fl Immature Gran % (Auto) 0.4 (0-0.5) % Neut % (Auto) 61.0 (45.5-73.1) % Lymph % (Auto) 19.7 (18.3-44.2) % Brooks % (Auto) 6.8 (2.6-8.5) % Eos % (Auto) 11.0 H (0-4.4) % Baso % (Auto) 1.1 (0.2-1.2) % Lymph # (Auto) 1.80 (0.9-3.2) K/mm3 Brooks # (Auto) 0.6 (0.1-0.6) K/mm3 Eos # (Auto) 1.0 H (0-0.3) K/mm3 Baso # (Auto) 0.1 (0.0-0.1) K/mm3 Abs Immat Gran (auto) 0.04 H (0.00-0.031) K/mm3 Absolute Neuts (auto) 5.6 (1.3-6.7) K/mm3 Absolute Nucleated RBC 0.000 (0.0-0.012) K/mm3 Nucleated RBC % 0.0 (0.0-0.2) % PT 14.4 (11.1-14.7) Seconds INR 1.1 APTT 37.1 H (22.3-36.8) Seconds Sodium 139 (137-145) mmol/L Potassium 4.0 (3.4-5.0) mmol/L Chloride 104 (98-107) mmol/L Carbon Dioxide 29 (22-30) mmol/L Anion Gap 6 (4-12) mmol/L BUN 16 (9-20) mg/dL Creatinine 0.70 (0.7-1.3) mg/dL Estim Creat Clear Calc Not Reportable Estimated GFR > 60 (59 - ) Glucose 104 (65-110) mg/dL Lactic Acid 1.1 (0.7-2.0) mmol/L Calcium 9.0 (8.4-10.2) mg/dL Magnesium 2.2 (1.6-2.3) mg/dL Total Bilirubin 0.7 (0.2-1.3) mg/dL AST 23 (17-59) U/L ALT 15 (6-50) U/L Alkaline Phosphatase 98 (38-126) U/L Troponin I < 0.012 (0.000-0.034) ng/mL NT-Pro-B Natriuret Pep 307 H (19.9-100) pg/mL Total Protein 7.0 (6.3-8.2) g/dL Albumin 4.0 (3.5-5.1) g/dL Urine Color Yellow (Yellow) Urine Appearance Clear (Clear) Urine pH 5.5 (5.0-9.0) Ur Specific [place] 1.029 (1.001-1.035) Urine Protein Negative (Negative) mg/dL Urine Glucose (UA) Negative (Negative) mg/dL Urine Ketones Trace H (Negative) mg/dL Ur Blood (Man) 3+ H (Negative) Urine Nitrate Negative (Negative) Urine Bilirubin Negative (Negative) Urine Urobilinogen 1.0 (<2.0) mg/dL Leukocyte Esterase Rfl Negative (Negative) KRISTEN/UL Urine RBC >100 H (0-2) /hpf Urine WBC 0-5 (0-3) /hpf Ur Squamous Epith Cells None seen (Few) /hpf Urine Bacteria None seen /hpf Urine Casts 0-2 Discharge Plan Discharge Clinical Impression: Acute asthmatic bronchitis Patient Disposition: [facility] Residential/Asst Living Condition: Stable Instructions: Antibiotic Form, Acute Bronchitis (ED) Prescriptions: New prednisone 20 mg tablet 40 mg PO DAILY 5 Days Qty: 10 0RF doxycycline hyclate 100 mg tablet 100 mg PO BID Qty: 14 0RF No Action escitalopram oxalate 10 mg tablet 10 mg PO DAILY Qty: 90 0RF rivastigmine 4.6 mg/24 hour patch 24 hour 4.6 mg transdermal DAILY quetiapine 25 mg tablet 25 mg PO BID memantine 10 mg Tablet 10 mg PO BID acetaminophen 650 mg tablet extended release 650 mg PO Q8H PRN (Reason: pain) Qty: 20 0RF omeprazole 20 mg tablet,delayed release (DR/EC) 20 mg PO DAILY Qty: 20 0RF albuterol sulfate 90 mcg/actuation HFA aerosol inhaler 2 puff INHALATION QID PRN (Reason: shortness of breath or wheezing) Qty: 8 3RF fluticasone propion-salmeterol [Wixela Inhub] 500-50 mcg/dose blister with device 1 inh INHALATION Q12H Qty: 60 3RF Follow-up/Referrals: Benny Barrow APRN [Primary Care Provider] - Time of Disposition: 02:01
[2024-08-02] MEDS: LORazepam INJ (*CRX) 2 MG/ML VIAL 1 MG IV PUSH (03:41)
--- NOTE | 2024-08-02 03:42 | PC.NURSE ---
This RN entered pt room after hearing pt call out for help. Upon entering pt room, pt IV was on the floor, with active bleeding from IV site on the L FA. While attempting to hold pressure to IV site, pt began swinging arms at this RN and Nanette RN and attempting to crawl out of bed. Pt ripped off all tele and ekg stickers as well as hospital gown. Security called and multiple other RNs at bedside. Pt still attempting to hit employees and crawl out of bed. Pt assisted back into bed by security and RNs. EDP Dr. Ambrose made aware. Meds ordered by EDP Dr. Ambrose and administered to pt.
--- NOTE | 2024-08-02 05:24 | PC.NURSE ---
EMS arrives for patient
== END 2024-08-02 05:34 | disposition hospice, home (50) ==
PROVIDERS: Emergency Provider Emergency Medicine; PCP Nurse Practitioner
DX: J45.31 Mild persistent asthma with (acute) exacerbation (principal); Z51.5 Encounter for palliative care; F03.90 Unspecified dementia, unspecified severity, without behavioral disturbance, psychotic disturbance, mood disturbance, and anxiety; K21.9 Gastro-esophageal reflux disease without esophagitis; Z66 Do not resuscitate; Z86.16 Personal history of COVID-19; Z86.0101 Personal history of adenomatous and serrated colon polyps; Z77.22 Contact with and (suspected) exposure to environmental tobacco smoke (acute) (chronic); Z79.899 Other long term (current) drug therapy
CPT/HCPCS: 36415; 71045; 80053; 81001; 83605; 83735; 83880; 84484; 85025; 85610; 85730; 94640; 96374; 99284; J2060